=== PATIENT | male | born 1950 | race Caucasian/White ===

== ENCOUNTER → 2017-08-27 13:53 | Outpatient (CLI) | payer MEDICARE, SELFPAY ==
--- NOTE | 2017-08-27 | CA_ITS ---
PROCEDURE: 2-D M-mode and color Doppler study INDICATIONS FOR THE TEST: Chest pain+ COPD+ Heart Murmur Tobacco Smoking+ Palpitations Fatigue+ Syncope Edema+ Hypertension Diabetes Mellitus Rheumatic Fever SOB+PIERCE+Obesity Hyperlipidemia Family History HD+ Additional History cad PATIENT INFORMATION HEIGHT: 69 WEIGHT: 224 GENDER: Male B/P: 137/71 2-D/M-MODE INTERPRETATION: 2-D MEASUREMENTS OBSERVED VALUES IN CMS Right Ventricular Dimension (RVDd) 2.7 Interventricular Septum (Thickness)(IVsd) 1.1 Left Ventricular Internal Dimensions(LVIDd) 4.1 Left Ventricular Posterior Wall (Thickness)(LVPWd) 1.1 Aortic Root 3.1 Aortic Cusp Separation 2.2 Left Atrial Dimensions (LAD) 3.6 2D 1. Left atrium is mildly enlarged, left ventricle is normal size, left ventricle wall thickness is upper limit of the normal, there is preserved left ventricular systolic function, visually estimated ejection fraction 55% with no obvious regional wall motion abnormality, endocardial surfaces are poorly visualized. 2. The right atrium and right ventricle are mildly enlarged with normal contractility. 3. The aortic valve is minimally thickened and fibrosed. 4. The mitral and tricuspid valve leaflets are minimally thickened. 5. The pulmonic valve is poorly visualized. 6. No significant pericardial effusion noted. DOPPLER INTERROGATION: Doppler interrogation of the aortic, mitral and tricuspid presence of mild mitral and tricuspid regurgitation, tricuspid and jet velocity insufficient for calculation of the right ventricular systolic pressure, grade 1 diastolic dysfunction seen without tissue Doppler evidence of raised left atrial pressure. CONCLUSION: 1. Technically difficult study because of the patient's factor and poor acoustic windows 2. Enlarged left atrium, normal left ventricular size, mild concentric left ventricular hypertrophy, visually estimated ejection fraction 55% with no obvious regional wall motion abnormality, grade 1 diastolic dysfunction seen without tissue Doppler evidence of raised left atrial pressure. 3. Mild mitral and tricuspid regurgitation 4. No significant pericardial effusion noted.
== END ==
PROVIDERS: Family Provider Internal Medicine Adolescent Medicine; PCP Emergency Medicine; Visit Provider Internal Medicine
DX: I25.10 Atherosclerotic heart disease of native coronary artery without angina pectoris (principal); R06.00 Dyspnea, unspecified; E78.5 Hyperlipidemia, unspecified; I10 Essential (primary) hypertension; J44.9 Chronic obstructive pulmonary disease, unspecified
CPT/HCPCS: 93306

== ENCOUNTER → 2017-08-28 08:37 | Outpatient (POV) | payer MEDICARE, SELFPAY ==
[2017-08-28 09:35] LABS: Microscopic, Urine URINE MICROSCOPIC (MICROSCOPIC)
[2017-08-28 09:57] LABS: Basophils # 0.1 K/mm3 (0-0.2); Basophils % 0.7 % (0.1-2.0); Eosinophils # 0.3 K/mm3 (0.0-0.4); Eosinophils % 2.7 % (0.1-12.0); Hematocrit 43.4 % (42.0-52.0); Hemoglobin 13.9 g/dL (14.1-18.0); Lymphocytes # 3.5 K/mm3 (0.7-4.5); Lymphocytes % 32.2 K/mm3 (10-50); Mean Corpuscular Hemoglobin 29.1 pg (27.0-31.2); Mean Corpuscular Volume 90.8 fl (80-94); Mean Platelet Volume 7.8 fl (7.4-10.4); Monocytes # 0.8 K/mm3 (0.1-1.0); Monocytes % 7.8 % (1.7-9.3); Neutrophils # 6.1 K/mm3 (1.8-7.8); Neutrophils % 56.6 % (37.0-80.0); Platelet Count 341 K/mm3 (142-424); Red Blood Count 4.78 M/mm3 (4.60-6.20); White Blood Count 10.8 K/mm3 (4.8-10.8)
[2017-08-28 10:10] LABS: Appearance,Urine CLEAR (Clear); Bilirubin,Urine Negative (Negative); Blood, Urine 2+ (Negative); Color,Urine YELLOW (Yellow); Glucose,Urine (UA) Negative (Negative); Ketones,Urine Negative (Negative); Leukocyte Esterase,Urine Negative (Negative); Nitrate,Urine Negative (Negative); Protein,Urine 2+ (Negative); Urobilinogen,Urine 0.2 EU/dl (0.2)
[2017-08-28 10:24] LABS: Bacteria,Urine Trace /lpf; Squamous Epithelial Cell,Urine Occasional #/hpf (0-5)
[2017-08-28 11:15] LABS: Alanine Aminotransferase 19 U/L (12-78); Albumin/Globulin Ratio 0.8 (1.1-1.8); Alkaline Phosphatase 159 U/L (46-116); Anion Gap 11.7 mEq/L (5-15); Aspartate Amino Transferase 18 U/L (15-37); Bilirubin,Total 0.3 mg/dL (0.2-1.0); Blood Urea Nitrogen 17 mg/dL (7-18); Calcium 9.4 mg/dL (8.5-10.1); Carbon Dioxide 29 mmol/L (21.0-32.0); Chloride 105 mmol/L (98-107); Creatinine,Serum 1.76 mg/dL (0.70-1.30); Estimated Glomerular Filt Rate 39 ml/min (>60); GFR (African American) 47 ML/MIN (>60); Glucose 70 mg/dL (74-106); Potassium 4.7 mmoL/L (3.5-5.1); Sodium 141 mmol/L (136-145)
== END ==
PROVIDERS: Family Provider Internal Medicine Adolescent Medicine; PCP Emergency Medicine; Visit Provider Internal Medicine
DX: Z12.2 Encounter for screening for malignant neoplasm of respiratory organs (principal); Z87.891 Personal history of nicotine dependence; N18.4 Chronic kidney disease, stage 4 (severe); R31.29 Other microscopic hematuria
CPT/HCPCS: 36415; 80053; 81001; 85025

== ENCOUNTER → 2017-09-20 08:36 | Outpatient (CLI) | payer MEDICARE, SELFPAY ==
--- NOTE | 2017-09-20 08:40 | CT_ITS ---
CT lung screening EXAM: CT LUNG LOW DOSE WO CONTRAST HISTORY: 67 year old male with 90+ pack year smoking history asymptomatic ITS.REASON: H/O NICOTINE DEPENDENCE ORDERING PHYSICIAN: Ulysses Mcgill MD PATIENT AGE: 67 years COMPARISON: 07/17/2016 TECHNIQUE: The exam was performed on a GE Light Speed [address] scanner using 2.90 mGy CTDI. A low dose helical CT CHEST was performed on a multi-detector scanner. All CT scans at the facility use one or more dose reduction, viz: automated exposure control; ma/kV adjustment per patient size (including targeted exams where dose is matched to indication; i.e. head); or iterative reconstruction technique. The LDCT was performed in a facility that meets the criteria for the screening program. Data regarding this exam was submitted to ACR which is an approved registry. The order for this exam indicates that it came as a result of a lung cancer screening counseling shard decision-making visit that included all the elements required of such a visit including smoking cessation. The radiologist interpreting this exam meets the CMS criteria for the LDCT lung cancer screening program. The exam is reported using the Lung-RADS classification scale and reported to the ACR registry. NOTE: This study was performed for the specific purposes of lung cancer screening and is not an alternative to diagnostic chest CT. RADIATION DOSE: CTDI vol(CT dose Index-volume) = 2.90mG DLP (Dose Length Product) = 110.34 mGcm FINDINGS: There are centrilobular emphysematous changes with hyperinflation. 4 mm noncalcified nodule right upper lobe unchanged. There is mild degree of motion artifact somewhat obscuring fine detail. Stable 4 mm subpleural nodular density right lower lobe laterally. 5 mm subpleural nodule right midlung laterally. Fissural stable. 3 x 1 cm pleural-based plaque-like lesion with some calcification right upper lobe posteriorly unchanged 5 mm subpleural nodular opacity in the lingula area unchanged. No new nodules evident. No central obstructing lesions. Coronary artery calcifications are present. IMPRESSION: 1. Lung RADS Category: 2, benign 2. Other findings: Centrilobular emphysema/COPD. Coronary artery disease RECOMMENDATIONS: 12 month LDCT follow-up
== END ==
PROVIDERS: Family Provider Internal Medicine Adolescent Medicine; PCP Emergency Medicine; Visit Provider Internal Medicine
DX: Z87.891 Personal history of nicotine dependence (principal); Z12.2 Encounter for screening for malignant neoplasm of respiratory organs; J43.9 Emphysema, unspecified; F17.200 Nicotine dependence, unspecified, uncomplicated

== ENCOUNTER → 2017-10-15 14:11 | Outpatient (CLI) | payer MEDICARE, SELFPAY ==
[2017-10-15 00:33] VITALS: BP 130/74; BP 140/90; PULSE 58; PULSE 79; RESP 18; RESP 22; O2SAT 94; O2SAT 95
[2017-10-15 15:40] VITALS: PULSE 58; PULSE 64
== END ==
PROVIDERS: Family Provider Internal Medicine Adolescent Medicine; PCP Emergency Medicine; Visit Provider Internal Medicine
DX: J43.9 Emphysema, unspecified (principal)
CPT/HCPCS: 94060; 94618; 94640; 94727; 94729

== ENCOUNTER → 2017-11-21 14:51 | Outpatient (CLI) | payer MEDICARE, SELFPAY | PROVIDERS: Visit Provider Nurse Practitioner Family | DX: Z79.899 Other long term (current) drug therapy (principal) ==

== ENCOUNTER → 2017-12-10 10:33 | Outpatient (CLI) | payer MEDICARE, SELFPAY ==
--- NOTE | 2017-12-10 10:35 | CA_ITS ---
PROCEDURE: 2-D M-mode and color Doppler study INDICATIONS FOR THE TEST: Chest pain COPD Heart Murmur Tobacco Smoking+ Palpitations Fatigue Syncope Edema Hypertension+Diabetes Mellitus Rheumatic Fever SOB PIERCE Obesity Hyperlipidemia+ Family History HD Additional History cad, ckd PATIENT INFORMATION HEIGHT: 69 WEIGHT:230 GENDER: Male B/P:161/81 2-D/M-MODE INTERPRETATION: 2-D MEASUREMENTS OBSERVED VALUES IN CMS Right Ventricular Dimension (RVDd) 2.6 Interventricular Septum (Thickness)(IVsd) 1.0 Left Ventricular Internal Dimensions(LVIDd) 4.6 Left Ventricular Posterior Wall (Thickness)(LVPWd) 0.9 Aortic Root 3.3 Aortic Cusp Separation 2.0 Left Atrial Dimensions (LAD) 4.1 2D 1. Left atrium is mildly enlarged, left ventricle is normal size, mild concentric left ventricular hypertrophy, visually estimated ejection fraction 55% with no obvious regional wall motion abnormality. 2. The right atrium and right ventricle are normal size and contractility. 3. The aortic valve is minimally thickened and fibrosed. 4. The mitral and tricuspid valve is structurally normal. 5. The pulmonic valve is poorly visualized. 6. No significant pericardial effusion noted. DOPPLER INTERROGATION: Doppler interrogation of the aortic, mitral and tricuspid valvular presence of mild mitral and tricuspid regurgitation, tricuspid regurgitation jet velocity is insufficient for calculation of the right ventricular systolic pressure, grade 1 diastolic dysfunction seen with tissue Doppler evidence of raised left atrial pressure. CONCLUSION: 1. Mildly enlarged left atrium, normal left ventricular size, mild concentric left ventricular hypertrophy, visually estimated ejection fraction 55% with no signal wall motion abnormality, grade 1 diastolic dysfunction seen with tissue Doppler evidence of raised left atrial pressure. 2. Mild mitral and tricuspid regurgitation 3. No significant pericardial effusion noted.
== END ==
PROVIDERS: Family Provider Internal Medicine Adolescent Medicine; PCP Emergency Medicine; Visit Provider Internal Medicine
DX: I25.10 Atherosclerotic heart disease of native coronary artery without angina pectoris (principal)
CPT/HCPCS: 93306

== ENCOUNTER → 2018-02-18 15:15 | Outpatient (CLI) | payer MEDICARE, SELFPAY ==
[2018-02-18 17:55] LABS: Amphetamine/Metha Screen,Urine Negative ng/mL (<1000); Barbiturates Screen,Urine Negative ng/mL (<200); Benzodiazepines Screen,Urine Negative ng/mL (<200); Cannabinoid Screen,Urine Negative ng/mL (<50); Cocaine Screen,Urine Negative ng/mL (<300); Methadone Screen,Urine Negative ng/mL (<300); Opiate Screen,Urine Negative ng/mL (<300); Phencyclidine Screen,Urine Negative ng/mL (<25)
== END ==
PROVIDERS: Visit Provider Nurse Practitioner Family
DX: Z79.899 Other long term (current) drug therapy (principal)
CPT/HCPCS: 80305

== ENCOUNTER → 2018-02-19 11:42 | Outpatient (CLI) | payer MEDICARE, SELFPAY ==
[2018-02-19 15:51] LABS: Anion Gap 10.9 mEq/L (5-15); Blood Urea Nitrogen 18 mg/dL (7-18); Calcium 8.3 mg/dL (8.5-10.1); Carbon Dioxide 32 mmol/L (21.0-32.0); Chloride 102 mmol/L (98-107); Estimated Glomerular Filt Rate 36 ml/min (>60); GFR (African American) 43 ML/MIN (>60); Glucose 90 mg/dL (74-106); Potassium 4.9 mmoL/L (3.5-5.1); Sodium 140 mmol/L (136-145)
== END ==
PROVIDERS: Visit Provider Physician Assistant
DX: E78.2 Mixed hyperlipidemia (principal); F17.200 Nicotine dependence, unspecified, uncomplicated; I10 Essential (primary) hypertension; I25.10 Atherosclerotic heart disease of native coronary artery without angina pectoris; I51.9 Heart disease, unspecified; J45.909 Unspecified asthma, uncomplicated; N18.9 Chronic kidney disease, unspecified; R60.9 Edema, unspecified
CPT/HCPCS: 36415; 80048

== ENCOUNTER → 2018-07-19 10:18 | Outpatient (CLI) | payer MEDICARE, SELFPAY ==
[2018-07-19 12:41] LABS: Anion Gap 14.6 mEq/L (5-15); Blood Urea Nitrogen 35 mg/dL (7-18); Calcium 8.9 mg/dL (8.5-10.1); Carbon Dioxide 26 mmol/L (21.0-32.0); Chloride 101 mmol/L (98-107); Creatinine,Serum 3.24 mg/dL (0.70-1.30); Estimated Glomerular Filt Rate 19 ml/min (>60); GFR (African American) 23 ML/MIN (>60); Glucose 98 mg/dL (74-106); Potassium 5.6 mmoL/L (3.5-5.1); Sodium 136 mmol/L (136-145)
== END ==
PROVIDERS: Internal Medicine Cardiovascular Disease; Visit Provider Internal Medicine
DX: F17.200 Nicotine dependence, unspecified, uncomplicated; G62.9 Polyneuropathy, unspecified; I25.10 Atherosclerotic heart disease of native coronary artery without angina pectoris; J45.909 Unspecified asthma, uncomplicated; N18.9 Chronic kidney disease, unspecified; I11.9 Hypertensive heart disease without heart failure; E78.2 Mixed hyperlipidemia
CPT/HCPCS: 36415; 80048

== ENCOUNTER → 2018-10-14 11:34 | Outpatient (CLI) | payer MEDICARE, SELFPAY ==
[2018-10-14 12:31] LABS: Blood Urea Nitrogen 32 mg/dL (7-18); Calcium 8.6 mg/dL (8.5-10.1); Carbon Dioxide 32 mmol/L (21.0-32.0); Chloride 102 mmol/L (98-107); Creatinine,Serum 2.99 mg/dL (0.70-1.30); Estimated Glomerular Filt Rate 21 ml/min (>60); GFR (African American) 25 ML/MIN (>60); Glucose 78 mg/dL (74-106); Sodium 140 mmol/L (136-145)
== END ==
PROVIDERS: Visit Provider Nurse Practitioner Family
DX: R06.00 Dyspnea, unspecified (principal); E78.2 Mixed hyperlipidemia; F17.200 Nicotine dependence, unspecified, uncomplicated; I25.10 Atherosclerotic heart disease of native coronary artery without angina pectoris; N18.9 Chronic kidney disease, unspecified; R60.9 Edema, unspecified
CPT/HCPCS: 36415; 80048; 83880

== ENCOUNTER → 2018-10-16 15:20 | Outpatient (CLI) | payer MEDICARE, SELFPAY ==
--- NOTE | 2018-10-16 15:21 | CA_ITS ---
PROCEDURE: 2-D M-mode and color Doppler study INDICATIONS FOR THE TEST: Chest pain COPDX Heart Murmur Tobacco SmokingX Palpitations Fatigue Syncope EdemaX HypertensionXDiabetes Mellitus Rheumatic Fever SOBXDOE Obesity HyperlipidemiaX Family History HD Additional History TDS PATIENT INFORMATION HEIGHT:69 WEIGHT:256 GENDER: Male B/P:154/75 2-D/M-MODE INTERPRETATION: 2-D MEASUREMENTS OBSERVED VALUES IN CMS Right Ventricular Dimension (RVDd) 3.5 Interventricular Septum (Thickness)(IVsd) 1.0 Left Ventricular Internal Dimensions(LVIDd) 5.7 Left Ventricular Posterior Wall (Thickness)(LVPWd) 1.2 Aortic Root 3.7 Aortic Cusp Separation 1.8 Left Atrial Dimensions (LAD) 3.8 2D 1. Left atrium is mildly enlarged, left ventricle is normal size, mild concentric left ventricular hypertrophy, visually estimated ejection fraction 55% with no regional wall motion abnormality. 2. The right atrium and right ventricle are mildly enlarged with normal contractility. 3. The aortic valve is minimally thickened and fibrosed. 4. The mitral and tricuspid valvular grossly normal. 5. The pulmonic valve is poorly visualized. 6. No significant pericardial effusion noted. DOPPLER INTERROGATION: Doppler interrogation of the aortic, mitral and tricuspid valvular presence of mild mitral and tricuspid regurgitation, tricuspid regurgitation jet velocity is inadequate for calculation of the right ventricular systolic pressure, grade 1 diastolic dysfunction seen without tissue Doppler evidence of raised left atrial pressure, inferior vena cava is not well visualized. CONCLUSION: 1. Biatrial enlargement, normal left ventricular size, mild concentric left ventricular hypertrophy, visually estimated ejection fraction 55% with no regional wall motion abnormality, grade 1 diastolic dysfunction seen without tissue Doppler evidence of raised left atrial pressure. 2. Mildly enlarged right ventricle with normal contractility. 3. Mild mitral and tricuspid regurgitation 4. No significant pericardial effusion noted.
== END ==
PROVIDERS: PCP Emergency Medicine; Visit Provider Nurse Practitioner Family
DX: I51.89 Other ill-defined heart diseases (principal); R06.00 Dyspnea, unspecified; R06.01 Orthopnea; R60.0 Localized edema
CPT/HCPCS: 93306

== ENCOUNTER → 2018-10-30 12:07 | Outpatient (CLI) | payer MEDICARE, SELFPAY ==
[2018-10-30 13:27] LABS: Anion Gap 9.8 mEq/L (5-15); Blood Urea Nitrogen 23 mg/dL (7-18); Calcium 8.9 mg/dL (8.5-10.1); Carbon Dioxide 32 mmol/L (21.0-32.0); Chloride 103 mmol/L (98-107); Creatinine,Serum 2.49 mg/dL (0.70-1.30); Estimated Glomerular Filt Rate 26 ml/min (>60); GFR (African American) 31 ML/MIN (>60); Glucose 78 mg/dL (74-106); Potassium 4.8 mmoL/L (3.5-5.1); Sodium 140 mmol/L (136-145)
== END ==
PROVIDERS: Visit Provider Urology
DX: E78.5 Hyperlipidemia, unspecified (principal); F17.200 Nicotine dependence, unspecified, uncomplicated; I25.10 Atherosclerotic heart disease of native coronary artery without angina pectoris; I50.9 Heart failure, unspecified; J44.9 Chronic obstructive pulmonary disease, unspecified; N18.9 Chronic kidney disease, unspecified; R06.00 Dyspnea, unspecified; R60.9 Edema, unspecified; I12.9 Hypertensive chronic kidney disease with stage 1 through stage 4 chronic kidney disease, or unspecified chronic kidney disease
CPT/HCPCS: 36415; 80048

== ENCOUNTER 2018-11-27 14:50 | Inpatient (IN) ==
[2018-11-27 15:16] LABS: Basophils % 0.4 % (0.1-2.0); Eosinophils # 0.3 K/mm3 (0.0-0.4); Eosinophils % 3.5 % (0.1-12.0); Hematocrit 39.8 % (42.0-52.0); Hemoglobin 12.2 g/dL (14.1-18.0); Lymphocytes # 2.6 K/mm3 (0.7-4.5); Lymphocytes % 26.2 % (10-50); Mean Corpuscular HGB Conc 30.8 g/dL (31.8-35.4); Mean Corpuscular Volume 88.5 fl (80-94); Mean Platelet Volume 7.7 fl (7.4-10.4); Monocytes # 0.7 K/mm3 (0.1-1.0); Monocytes % 6.6 % (1.7-9.3); Neutrophils # 6.3 K/mm3 (1.8-7.8); Neutrophils % 63.3 % (37.0-80.0); Platelet Count 316 K/mm3 (142-424); Red Blood Count 4.49 M/mm3 (4.60-6.20); Red Cell Distribution Width 15.9 % (11.5-17.5); White Blood Count 9.9 K/mm3 (4.8-10.8)
[2018-11-27 15:31] LABS: Anion Gap 9.3 mEq/L (5-15); Blood Urea Nitrogen 22 mg/dL (7-18); Calcium 8.5 mg/dL (8.5-10.1); Carbon Dioxide 34 mmol/L (21.0-32.0); Chloride 104 mmol/L (98-107); Glucose 86 mg/dL (74-106); Sodium 143 mmol/L (136-145)
--- NOTE | 2018-11-27 15:58 | Emergency Department Note ---
ED Disposition Clinical Impression: CHF (congestive heart failure), CKD (chronic kidney disease) Disposition: Admitted as Observation Condition on Discharge: Fair Referrals: Cash Olvera MD [Primary Care Provider] - Time of Disposition: 16:57 - Critical Care Critical Care Time: No Attestation: On 11/27/18, the high probability of a clinically significant, sudden or life threatening deterioration of the following system(s) required my full and direct attention, intervention and personal management. The time I documented below is in addition to time spent performing reported procedures but includes the following listed in this critical care notation. Medical Decision Making - Medical Records Medical records reviewed: Yes: I reviewed the patient's medical records. - Hugo Inquiry Pt receiving controlled substance: No Hugo was queried for this patient: No Vital Signs: 11/27/18 14:51 11/27/18 15:21 11/27/18 15:30 Temperature 98 F Temperature Source Oral Pulse Rate Pulse Rate [Left Radial] 63 59 L 58 L Respiratory Rate 24 Blood Pressure [Right Arm] 157/91 H 177/87 H 177/87 H Blood Pressure Mean [Right Arm] 113 117 117 Blood Pressure Source [Right Arm] Automatic Cuff Automatic Cuff Blood Pressure Position [Right Arm] Sitting Sitting 02 Sat by Pulse Oximetry 91 L 96 96 Oxygen Delivery Method Room Air Nasal Cannula 11/27/18 15:50 Temperature Temperature Source Pulse Rate 57 L Pulse Rate [Left Radial] Respiratory Rate Blood Pressure [Right Arm] Blood Pressure Mean [Right Arm] Blood Pressure Source [Right Arm] Blood Pressure Position [Right Arm] 02 Sat by Pulse Oximetry Oxygen Delivery Method - Lab Data Lab results reviewed: Yes: I reviewed the patient's lab results. Lab Results 11/27/18 15:05: WBC 9.9, RBC 4.49 L, Hgb 12.2 L, Hct 39.8 L, MCV 88.5, MCH 27.2, MCHC 30.8 L, RDW 15.9, Plt Count 316, MPV 7.7, Neut % (Auto) 63.3, Lymph % (Auto) 26.2, [place] % (Auto) 6.6, Eos % (Auto) 3.5, Baso % (Auto) 0.4, Neut # (Auto) 6.3, Lymph # (Auto) 2.6, [place] # (Auto) 0.7, Eos # (Auto) 0.3, Baso # (Auto) 0.0 11/27/18 15:05: Sodium 143, Potassium 4.3, Chloride 104, Carbon Dioxide 34 H, Anion Gap 9.3, BUN 22 H, Creatinine 3.41 H, Estimated Creat Clear 35, Estimated GFR 18 L*, Est GFR ( Amer) 22 L, Glucose 86, Calcium 8.5, Troponin I < 0.02 11/27/18 15:05: B-Natriuretic Peptide 1110 H Result diagrams: 11/27/18 15:05 11/27/18 15:05 Orders (Tests/Meds): ED MEDICATIONS Discontinued Medications Generic Name Dose Route Start Last Admin Trade Name Freq PRN Reason Stop Dose Admin Albuterol/Ipratropium 3 ml 11/27/18 15:49 11/27/18 15:50 Duoneb 3ml Neb IH 11/27/18 15:50 3 ml ONCE ONE Administration ORDERS Category Date Time Status US abdomen complete Stat Ultrasound 11/27/18 15:47 Ordered - Physician Consults Physician Consulted: bam Reason -: Admission General Adult HPI - General Chief complaint: Shortness of Breath/Dyspnea Stated complaint: sob Time Seen by Provider: 11/27/18 15:15 Mode of Arrival: Wheelchair Source of Information: Patient Limitations: No Limitations Description of Symptoms (Recalled from ER Triage Doc. by RN): pt sent from dr medrano for eval due to sob, swelling feet ankles and abd. generalized weakness, and fatique. pt states has been getting worse over the last 3 days. pt denies any chest pain, cough, fever. - History of Present Illness HPI narrative: some increasing weight, girth, leg edema. on lasix 40 mg bid. Spoke with Dr. Medrano, rec admission for diuresis and follow kidney function - Related Data Home Medications Medication Instructions Recorded Confirmed aspirin 81 mg tablet,delayed 81 mg PO DAILY 07/19/18 11/27/18 release furosemide 40 mg tablet 40 mg PO BID tab 10/30/18 11/27/18 Albuterol Sulfate [Albuterol HFA 2 puff INHALATION Q6H 11/27/18 11/27/18 Inhaler] Atorvastatin Calcium [Lipitor 20mg 20 mg PO QDAY 11/27/18 11/27/18 Tablet] Diclofenac Sodium [Voltaren 100gm 2 g TOPICAL QID 11/27/18 11/27/18 Topical Gel] Fluticasone Propionate [Flovent 2 inh INHALATION BID 11/27/18 11/27/18 Diskus] Gabapentin 800 mg PO QID 11/27/18 11/27/18 Hydralazine HCl [Hydralazine HCl 25 mg PO TID 11/27/18 11/27/18 25mg Tablet] Isosorbide Mononitrate [Imdur 30mg 30 mg PO DAILY 11/27/18 11/27/18 ER tablet] Losartan Potassium 100 mg PO DAILY 11/27/18 11/27/18 Prasugrel HCl [Prasugrel 10mg 10 mg PO QDAY 11/27/18 11/27/18 Tab] Triamcinolone Acetonide 1 applic TOPICAL BID 11/27/18 11/27/18 Umeclidinium Brm/Vilanterol Tr 1 inh INHALATION Q24H 11/27/18 11/27/18 [Anoro Ellipta] carvedilol 12.5 mg tablet 25 mg PO BID tab 11/27/18 11/27/18 Previous Rx's Medication Instructions Recorded polyethylene glycol 3350 17 17 g PO QDAY PRN #30 each 11/21/17 gram/dose oral powder Allergies Allergy/AdvReac Type Severity Reaction Status Date / Time lisinopril Allergy Severe Swelling Verified 11/27/18 13:38 of Lip/Tongue/Throat [facility] History - Hepatitis A Screen Drug use history?: No High risk sexual behaviors?: No History of sexually transmitted infection?: No Currently employed?: No Childcare worker?: No Do you have indoor plumbing?: Yes Do you have electricity?: Yes Attestation statement:: This patient has been screened for Hepatitis A risk factors. I have reviewed the patient's past medical history: Yes Medical History: Reports:: Asthma, Coronary Artery Disease, Gall Bladder Disease, Hyperlipidemia, Hypertension Comment: DEAF, HEART PROBLEMS,RA Laterality Cases: Right: Arthroscopy Shoulder Other Surgeries: Yes: Cardiac Catheterization, Cholecystectomy, Colonoscopy, Coronary Stent, Other Amputation: No Fractures: No Comment: GALLBLADDER REMOVED, HEART STENTS, RIGHT ROTATOR CUFF - Social History Smoking Status: Current every day smoker Tobacco Type: cigarettes # Packs/Day (cigarettes): 1 Alcohol Intake: never Alcohol Intake Frequency:: other Substance Use Type: denies use Occupational Status: disabled Housing: house Household Members: none Family Hx:: Coronary Artery Disease, Heart Attack ROS Obtained: Yes All systems reviewed & no additional complaints - Constitutional Constitutional: Denies fever(s) - Cardiovascular Cardiovascular: Denies chest pain, Reports dyspnea, Reports dyspnea on exertion - Respiratory Respiratory: Yes dyspnea on exertion - Gastrointestinal Gastrointestingal: Reports: bloating. Denies: abdominal pain - Musculoskeletal Musculoskeletal: Denies joint stiffness, Denies joint swelling, Denies muscle cr amps - Integumentary/Breasts Skin/Breast: Reports skin swelling - Neurologic Neurologic: Denies syncope - Hematologic/Lymphatic Henatologic/Lymphatic: Denies easy bleeding, Denies easy bruising Physical Exam - General General appearance: alert, in no apparent distress - Head Head exam: atraumatic, normocephalic, normal inspection - Eye Eye exam: Present: normal appearance, PERRL, EOMI - ENT ENT exam: Present: normal exam, normal oropharynx, mucous membranes moist, TM's normal bilaterally, normal external ear exam - Respiratory Respiratory exam: Present: other (scattered rales). Absent: respiratory distress - Cardiovascular Cardiovascular exam: Present: regular rate, normal rhythm - Abdominal Exam Abdominal exam: Present: distention. Absent: tenderness Comment: belly is taut, uclear if all ascites related. - Extremities Exam Extremities exam: Present: pedal edema - Neurological Exam Neurological exam: Present: alert, oriented X3 - Psychiatric Psychiatric exam: Present: normal affect, normal mood - Skin Skin exam: Present: warm, dry, other (edema to lower legs)
--- NOTE | 2018-11-28 07:41 | Pharmacy Consult Notes ---
[facility] Pharmacy VTE Monitoring - Patient Demographics Admission date: 11/27/18 Report Date: 11/28/18 Time: 07:41 Allergies/Adverse Reactions: Patient Allergies lisinopril Allergy (Severe, Verified 11/27/18 13:38) Swelling of Lip/Tongue/Throat Height: 1.75 m Weight: 117.084 kg Patient Problems: Current Active Problems CHF (congestive heart failure) (Acute) CKD (chronic kidney disease) (Chronic) - VTE Risk Labs: VTE Related Lab Results Hgb 12.2 g/dL (14.1-18.0) L 11/27/18 15:05 Hct 39.8 % (42.0-52.0) L 11/27/18 15:05 Plt Count 316 K/mm3 (142-424) 11/27/18 15:05 BUN 22 mg/dL (7-18) H 11/27/18 15:05 Creatinine 3.41 mg/dL (0.70-1.30) H 11/27/18 15:05 Estimated Creat Clear 35 mL/min (50-200) 11/27/18 15:05 Was VTE Risk Assessment Performed: Yes VTE Score: 3 VTE Risk Level: Low Risk - Prophylaxis VTE Prophylaxis Ordered?: Yes Types of VTE Prophylaxis: TEDS Knee High Location of Applied Device: Bilateral Lower Extremeties - VTE Diagnosis Confirmed Treatment or plan recommended: Continue Current Treatment
[2018-11-28 08:00] LABS: Basophils # 0.1 K/mm3 (0-0.2); Basophils % 0.5 % (0.1-2.0); Eosinophils # 0.3 K/mm3 (0.0-0.4); Hematocrit 39.7 % (42.0-52.0); Lymphocytes # 2.2 K/mm3 (0.7-4.5); Lymphocytes % 21.4 % (10-50); Mean Corpuscular HGB Conc 30.3 g/dL (31.8-35.4); Mean Corpuscular Volume 89.7 fl (80-94); Mean Platelet Volume 7.4 fl (7.4-10.4); Monocytes # 0.8 K/mm3 (0.1-1.0); Monocytes % 7.9 % (1.7-9.3); Neutrophils % 67.2 % (37.0-80.0); Platelet Count 346 K/mm3 (142-424); Red Blood Count 4.43 M/mm3 (4.60-6.20); Red Cell Distribution Width 15.9 % (11.5-17.5); White Blood Count 10.4 K/mm3 (4.8-10.8)
[2018-11-28 08:09] LABS: Anion Gap 8.7 mEq/L (5-15); Calcium 8.5 mg/dL (8.5-10.1)
--- NOTE | 2018-11-28 08:40 | Progress Note ---
Subjective Date: 11/28/18 Time: 08:37 Principal diagnosis: CHF, CKD Interval history: 68-year-old white male was seen in the office yesterday and subsequently admitted through the ER for acute on chronic congestive heart failure. Patient did receive IV Lasix with less than a liter of output overnight. Breathing is minimally improved. Patient denies any recent increase in salt intake or missing medications. Recent echocardiogram last month shows: 2D 1. Left atrium is mildly enlarged, left ventricle is normal size, mild concentric left ventricular hypertrophy, visually estimated ejection fraction 55% with no regional wall motion abnormality. 2. The right atrium and right ventricle are mildly enlarged with normal contractility. 3. The aortic valve is minimally thickened and fibrosed. 4. The mitral and tricuspid valvular grossly normal. 5. The pulmonic valve is poorly visualized. 6. No significant pericardial effusion noted. DOPPLER INTERROGATION: Doppler interrogation of the aortic, mitral and tricuspid valvular presence of mild mitral and tricuspid regurgitation, tricuspid regurgitation jet velocity is inadequate for calculation of the right ventricular systolic pressure, grade 1 diastolic dysfunction seen without tissue Doppler evidence of raised left atrial pressure, inferior vena cava is not well visualized. CONCLUSION: 1. Biatrial enlargement, normal left ventricular size, mild concentric left ventricular hypertrophy, visually estimated ejection fraction 55% with no regional wall motion abnormality, grade 1 diastolic dysfunction seen without tissue Doppler evidence of raised left atrial pressure. 2. Mildly enlarged right ventricle with normal contractility. 3. Mild mitral and tricuspid regurgitation 4. No significant pericardial effusion noted. Exam Vital signs and Labs for Last 24 Hours: Temp Pulse Resp BP Pulse Ox 97.7 F 59 L 24 152/76 H 93 L 11/28/18 07:55 11/28/18 07:55 11/28/18 07:55 11/28/18 07:55 11/28/18 07:55 Laboratory Results - last 24 hr 11/27/18 15:05: WBC 9.9, RBC 4.49 L, Hgb 12.2 L, Hct 39.8 L, MCV 88.5, MCH 27.2, MCHC 30.8 L, RDW 15.9, Plt Count 316, MPV 7.7, Neut % (Auto) 63.3, Lymph % (Auto) 26.2, Bond % (Auto) 6.6, Eos % (Auto) 3.5, Baso % (Auto) 0.4, Neut # (Auto) 6.3, Lymph # (Auto) 2.6, Bond # (Auto) 0.7, Eos # (Auto) 0.3, Baso # (Auto) 0.0 11/27/18 15:05: Sodium 143, Potassium 4.3, Chloride 104, Carbon Dioxide 34 H, Anion Gap 9.3, BUN 22 H, Creatinine 3.41 H, Estimated Creat Clear 35, Estimated GFR 18 L*, Est GFR ( Amer) 22 L, Glucose 86, Calcium 8.5, Troponin I < 0.02 11/27/18 15:05: B-Natriuretic Peptide 1110 H 11/28/18 07:29: WBC 10.4, RBC 4.43 L, Hgb 12.0 L, Hct 39.7 L, MCV 89.7, MCH 27.2, MCHC 30.3 L, RDW 15.9, Plt Count 346, MPV 7.4, Neut % (Auto) 67.2, Lymph % (Auto) 21.4, Bond % (Auto) 7.9, Eos % (Auto) 3.0, Baso % (Auto) 0.5, Neut # (Auto) 7.0, Lymph # (Auto) 2.2, Bond # (Auto) 0.8, Eos # (Auto) 0.3, Baso # (Auto) 0.1 11/28/18 07:29: Sodium 142, Potassium 4.7, Chloride 105, Carbon Dioxide 33 H, Anion Gap 8.7, BUN 27 H, Creatinine 3.74 H, Estimated Creat Clear 32, Estimated GFR 16 L*, Est GFR ( Amer) 20 L, Glucose 95, Calcium 8.5 I & O for Last 24 hours: Intake & Output 11/25/18 11/26/18 11/27/18 11/28/18 11:59 11:59 11:59 11:59 Intake Total 537 / 537 Output Total 900 / 900 Balance -363 / -363 Weight 258 lb 2 oz - *Routine HEENT Exam Head: Present: normocephalic Eye: Present: EOMI, PERRL ENT: Present: mucous membranes moist - *Routine Respiratory Exam Present: rhonchi, wheezes. Absent: accessory muscle use, rales - *Routine Cardiovascular Exam Present: RRR. Absent: murmur, gallop, rubs - *Routine Extremities Exam Present: edema. Absent: calf tenderness - *Routine Neurological Exam Present: alert, oriented X3, moving all extremities Very hard of hearing Progress Note: A&P (1) CHF (congestive heart failure) Status: Acute Current Visit: Yes (2) Abdominal distention Status: Acute Current Visit: No (3) COPD (chronic obstructive pulmonary disease) Status: Acute Current Visit: No (4) Edema of both lower extremities Status: Acute Current Visit: No (5) Obesity (BMI 30-39.9) Status: Acute Current Visit: No (6) Diastolic dysfunction Status: Chronic Current Visit: No (7) Tobacco dependence syndrome Status: Chronic Current Visit: No Assessment and Plan for All Diagnoses:: 1. We will obtain a limited echo today to assess for etiology of his congestive heart failure, which is likely due to acute on chronic diastolic dysfunction related to hypertensive heart disease. 2. Continue Isosorbide and hydralazine along with IV Lasix. 3. Lung nodule noted on chest x-ray reportedly different than nodule seen on CXR and CT of chest last year, defer to Dr. Olvera for further evaluation.
--- NOTE | 2018-11-28 11:51 | History & Physical Report ---
*Admission Date: 11/27/18 *Chief complaint: SOA, Wt Gain *History of present illness: Patient sitting up in bed this morning respirations are easy, even. He denies any chest pain. He is currently on 2 L of oxygen per nasal cannula. Patient is extremely hard of hearing. 68-year-old male patient sent from Dr. Weller's office during examination for shortness of breath, bilateral ankle, feet, and abdominal edema, generalized weakness, and fatigue. Patient stated he was getting worse over the last 3 days and denied any chest pain, cough, or fever. He also stated increasing weight, girth, bilateral leg edema, and currently taking Lasix [address] Weller requested admission for diuresis and to follow kidney function. Chest x-ray revealed congestive heart failure and suspicious 3 cm right upper lobe nodule. Abdominal CT was negative for ascites (both per Dr. Adam). [facility] History Medical History: Reports:: Asthma, Congestive Heart Failure, Coronary Artery Disease, Gall Bladder Disease, Hyperlipidemia, Hypertension Denies:: Cancer, Diabetes Mellitus Type 1, Diabetes Mellitus Type 2, MRSA *Have you ever received a pneumonia vaccine?: No *Have you received a flu vaccine this season?: No Laterality Cases: Right: Arthroscopy Shoulder Other Surgeries: Yes: Cardiac Catheterization, Cholecystectomy, Colonoscopy, Coronary Stent, Other Amputation: No Fractures: No - *Social History Smoking Status: Current every day smoker Tobacco Type: cigarettes # Packs/Day (cigarettes): 1 Alcohol Intake: never Alcohol Intake Frequency:: other Substance Use Type: denies use *Occupational Status:: disabled Housing: house Household Members: none *Travel in the last 8 weeks: None Family Hx:: Coronary Artery Disease, Heart Attack Review of Systems - Constitutional Reports fatigue, Reports weakness, Reports weight gain - Eyes Denies blurry vision, Denies change in vision - ENT Reports abnormal hearing, Reports hearing loss, Denies lip swelling, Denies mouth pain, Denies neck pain - *Cardiovascular Reports shortness of breath with activity, Reports generalized swelling, Denies chest pain - *Respiratory Reports shortness of breath with activity - *Gastrointestinal Denies abdominal pain, Denies excessive passing of gas, Denies black, tarry stools - *Genitourinary Denies difficulty urinating, Denies genital pain - *Musculoskeletal Denies joint pain, Denies neck pain - Integumentary/Breasts Denies hair loss, Denies bleeding lesions, Denies change in skin color - *Neurologic Reports abnormal hearing, Denies confusion, Denies headache(s), Denies numbness, Denies fainting - Psychiatric Denies confusion, Denies thoughts of hurting/killing yourself - Endocrine Denies cold intolerance, Denies rapid, pounding, or irregular heartbeat - Hematologic/Lymphatic Denies easy bleeding, Denies easy bruising - Allergic/Immunologic Denies GI upset with certain foods Meds Home Medications Medication Instructions Recorded Confirmed Type aspirin 81 mg tablet,delayed 81 mg PO DAILY 07/19/18 11/27/18 History release furosemide 40 mg tablet 40 mg PO BID tab 10/30/18 11/27/18 History Albuterol Sulfate [Albuterol HFA 2 puff INHALATION Q6H PRN 11/27/18 11/28/18 History Inhaler] Atorvastatin Calcium [Lipitor 20mg 20 mg PO DAILY 11/27/18 11/28/18 History Tablet] Fluticasone Propionate [Flovent 2 puffs INHALATION BID 11/27/18 11/28/18 History Diskus] Gabapentin 800 mg PO QID 11/27/18 11/27/18 History Hydralazine HCl [Hydralazine HCl 25 mg PO TID 11/27/18 11/27/18 History 25mg Tablet] Isosorbide Mononitrate [Imdur 30mg 30 mg PO DAILY 11/27/18 11/27/18 History ER tablet] Losartan Potassium 100 mg PO DAILY 11/27/18 11/27/18 History Prasugrel HCl [Prasugrel 10mg 10 mg PO DAILY 11/27/18 11/28/18 History Tab] Umeclidinium Brm/Vilanterol Tr 1 puff INHALATION Q24H 11/27/18 11/28/18 History [Anoro Ellipta] carvedilol 12.5 mg tablet 12.5 mg PO BID tab 11/27/18 11/28/18 History Allergies Allergy/AdvReac Type Severity Reaction Status Date / Time lisinopril Allergy Severe Swelling Verified 11/27/18 13:38 of Lip/Tongue/Throat Exam Vital signs and Labs for Last 24 Hours: Temp Pulse Resp BP Pulse Ox 97.7 F 64 24 152/76 H 93 L 11/28/18 07:55 11/28/18 10:56 11/28/18 07:55 11/28/18 07:55 11/28/18 08:00 Laboratory Results - last 24 hr 11/27/18 15:05: WBC 9.9, RBC 4.49 L, Hgb 12.2 L, Hct 39.8 L, MCV 88.5, MCH 27.2, MCHC 30.8 L, RDW 15.9, Plt Count 316, MPV 7.7, Neut % (Auto) 63.3, Lymph % (Auto) 26.2, Grundy % (Auto) 6.6, Eos % (Auto) 3.5, Baso % (Auto) 0.4, Neut # (Auto) 6.3, Lymph # (Auto) 2.6, Grundy # (Auto) 0.7, Eos # (Auto) 0.3, Baso # (Auto) 0.0 11/27/18 15:05: Sodium 143, Potassium 4.3, Chloride 104, Carbon Dioxide 34 H, Anion Gap 9.3, BUN 22 H, Creatinine 3.41 H, Estimated Creat Clear 35, Estimated GFR 18 L*, Est GFR ( Amer) 22 L, Glucose 86, Calcium 8.5, Troponin I < 0.02 11/27/18 15:05: B-Natriuretic Peptide 1110 H 11/28/18 07:29: WBC 10.4, RBC 4.43 L, Hgb 12.0 L, Hct 39.7 L, MCV 89.7, MCH 27.2, MCHC 30.3 L, RDW 15.9, Plt Count 346, MPV 7.4, Neut % (Auto) 67.2, Lymph % (Auto) 21.4, Grundy % (Auto) 7.9, Eos % (Auto) 3.0, Baso % (Auto) 0.5, Neut # (Auto) 7.0, Lymph # (Auto) 2.2, Grundy # (Auto) 0.8, Eos # (Auto) 0.3, Baso # (Auto) 0.1 11/28/18 07:29: Sodium 142, Potassium 4.7, Chloride 105, Carbon Dioxide 33 H, Anion Gap 8.7, BUN 27 H, Creatinine 3.74 H, Estimated Creat Clear 32, Estimated GFR 16 L*, Est GFR ( Amer) 20 L, Glucose 95, Calcium 8.5 I & O for Last 24 hours: Intake & Output 11/25/18 11/26/18 11/27/18 11/28/18 23:59 23:59 23:59 23:59 Intake Total 537 / 537 Output Total 350 / 350 1050 / 1050 Balance -350 / -350 -513 / -513 Weight 253 lb 9 oz 258 lb 2 oz - Constitutional no acute distress, obese - *Routine HEENT Exam Head: Present: normocephalic, atraumatic Eye: Present: EOMI, PERRL ENT: Present: mucous membranes dry - *Routine Neck Exam Present: supple, full ROM. Absent: JVD - *Routine Respiratory Exam Present: rhonchi, wheezes. Absent: accessory muscle use, rales - *Routine Cardiovascular Exam Present: RRR - *Routine Abdominal Exam Present: normoactive bowel sounds, distended, firm. Absent: tenderness - *Routine Extremities Exam Present: pulses intact. Absent: cyanosis, extremity cold to touch - Routine Back/Spine/Pelvis Exam Back/Spine: Present: full ROM. Absent: CVA tenderness, pain with flexion, pain with rotation - *Routine Skin Exam Present: intact, warm. Absent: cyanosis, jaundice - *Routine Neurological Exam Present: alert, oriented X3, CN II-XII intact. Absent: altered mental status - Routine Psychiatric Exam Present: normal affect, normal thought process. Absent: auditory hallucinations, visual hallucinations Assessment and Plan (1) CHF (congestive heart failure) Current visit: Yes Status: Acute Qualifiers: Category: Medical Code(s): I50.9 - Heart failure, unspecified (2) Abdominal distention Current visit: No Status: Acute Category: Medical Code(s): R14.0 - Abdominal distension (gaseous) (3) COPD (chronic obstructive pulmonary disease) Current visit: No Status: Acute Qualifiers: COPD type: emphysema Emphysema type: unspecified Qualified Code(s): J43.9 - Emphysema, unspecified Category: Medical Code(s): J44.9 - Chronic obstructive pulmonary disease, unspecified (4) Edema of both lower extremities Current visit: No Status: Acute Category: Medical Code(s): R60.0 - Localized edema (5) Obesity (BMI 30-39.9) Current visit: No Status: Acute Category: Medical Code(s): E66.9 - Obesity, unspecified (6) Diastolic dysfunction Current visit: No Status: Chronic Category: Medical Code(s): I51.9 - Heart disease, unspecified (7) Tobacco dependence syndrome Current visit: No Status: Chronic Category: Medical Code(s): F17.200 - Nicotine dependence, unspecified, uncomplicated (8) CKD (chronic kidney disease) Current visit: Yes Status: Chronic Qualifiers: Category: Medical Code(s): N18.9 - Chronic kidney disease, unspecified - Assessment and plan all Dx Assessment and Plan for all problems:: Rounds w/ Dr. Olvera, all orders per Dr. Olvera Cards Rec: 1. We will obtain a limited echo today to assess for etiology of his congestive heart failure, which is likely due to acute on chronic diastolic dysfunction related to hypertensive heart disease. 2. Continue Isosorbide and hydralazine along with IV Lasix. 3. Lung nodule noted on chest x-ray reportedly different than nodule seen on CXR and CT of chest last year, defer to Dr. Olvera for further evaluation. 1. Strict I/O's 2. Will Chest CT as outpatient unless needs arise
[2018-11-28 13:36] LABS: Anion Gap 9.5 mEq/L (5-15); Calcium 8.4 mg/dL (8.5-10.1)
[2018-11-28 13:50] LABS: Basophils % 0.4 % (0.1-2.0); Eosinophils # 0.3 K/mm3 (0.0-0.4); Eosinophils % 2.9 % (0.1-12.0); Hematocrit 39.3 % (42.0-52.0); Lymphocytes # 2.2 K/mm3 (0.7-4.5); Lymphocytes % 23.9 % (10-50); Mean Corpuscular HGB Conc 30.5 g/dL (31.8-35.4); Mean Corpuscular Volume 89.7 fl (80-94); Mean Platelet Volume 7.4 fl (7.4-10.4); Monocytes # 0.6 K/mm3 (0.1-1.0); Monocytes % 6.1 % (1.7-9.3); Neutrophils # 6.2 K/mm3 (1.8-7.8); Neutrophils % 66.7 % (37.0-80.0); Platelet Count 292 K/mm3 (142-424); Red Blood Count 4.38 M/mm3 (4.60-6.20); Red Cell Distribution Width 15.9 % (11.5-17.5); White Blood Count 9.3 K/mm3 (4.8-10.8)
--- NOTE | 2018-11-29 07:40 | Progress Note ---
Subjective Date: 11/29/18 Time: 07:37 Principal diagnosis: CHF, CKD Interval history: 68 yo WM sitting up at bedside eating breakfast in NAD. Still with complaint of SOA. Mainly concerned about no BM in 3 days. Limited echo yesterday shows no change compared to echo 09/2018 with normal LVEF and no pericardial effusion. Exam Vital signs and Labs for Last 24 Hours: Temp Pulse Resp BP Pulse Ox 98.2 F 71 20 142/58 H 86 L 11/29/18 03:43 11/29/18 06:24 11/29/18 03:43 11/29/18 03:43 11/29/18 06:24 Laboratory Results - last 24 hr 11/28/18 07:29: WBC 10.4, RBC 4.43 L, Hgb 12.0 L, Hct 39.7 L, MCV 89.7, MCH 27.2, MCHC 30.3 L, RDW 15.9, Plt Count 346, MPV 7.4, Neut % (Auto) 67.2, Lymph % (Auto) 21.4, Fountain % (Auto) 7.9, Eos % (Auto) 3.0, Baso % (Auto) 0.5, Neut # (Auto) 7.0, Lymph # (Auto) 2.2, Fountain # (Auto) 0.8, Eos # (Auto) 0.3, Baso # (Auto) 0.1 11/28/18 07:29: Sodium 142, Potassium 4.7, Chloride 105, Carbon Dioxide 33 H, Anion Gap 8.7, BUN 27 H, Creatinine 3.74 H, Estimated Creat Clear 32, Estimated GFR 16 L*, Est GFR ( Amer) 20 L, Glucose 95, Calcium 8.5 11/28/18 13:12: WBC 9.3, RBC 4.38 L, Hgb 12.0 L, Hct 39.3 L, MCV 89.7, MCH 27.4, MCHC 30.5 L, RDW 15.9, Plt Count 292, MPV 7.4, Neut % (Auto) 66.7, Lymph % (Auto) 23.9, Fountain % (Auto) 6.1, Eos % (Auto) 2.9, Baso % (Auto) 0.4, Neut # (Auto) 6.2, Lymph # (Auto) 2.2, Fountain # (Auto) 0.6, Eos # (Auto) 0.3, Baso # (Auto) 0.0 11/28/18 13:12: Sodium 140, Potassium 4.5, Chloride 102, Carbon Dioxide 33 H, Anion Gap 9.5, BUN 28 H, Creatinine 3.77 H, Estimated Creat Clear 31, Estimated GFR 16 L*, Est GFR ( Amer) 19 L*, Glucose 124 H D, Calcium 8.4 L I & O for Last 24 hours: Intake & Output 11/26/18 11/27/18 11/28/18 11/29/18 11:59 11:59 11:59 11:59 Intake Total 1017 / 1017 1999 / 1999 Output Total 1400 / 1400 1550 / 1550 Balance -383 / -383 450 / 450 Weight 258 lb 2 oz 261 lb 3 oz - *Routine HEENT Exam Head: Present: normocephalic Eye: Present: EOMI, PERRL ENT: Present: mucous membranes moist - *Routine Respiratory Exam Present: decreased breath sounds, wheezes, diminished air movement. Absent: accessory muscle use, rales, rhonchi - *Routine Cardiovascular Exam Present: RRR. Absent: murmur, gallop, rubs - *Routine Extremities Exam Present: edema. Absent: calf tenderness - *Routine Neurological Exam Present: alert, oriented X3, moving all extremities Progress Note: A&P (1) CHF (congestive heart failure) Status: Acute Current Visit: Yes (2) Abdominal distention Status: Acute Current Visit: No (3) COPD (chronic obstructive pulmonary disease) Status: Acute Current Visit: No (4) Edema of both lower extremities Status: Acute Current Visit: No (5) Obesity (BMI 30-39.9) Status: Acute Current Visit: No (6) Diastolic dysfunction Status: Chronic Current Visit: No (7) Tobacco dependence syndrome Status: Chronic Current Visit: No (8) CKD (chronic kidney disease) Status: Chronic Current Visit: Yes Assessment and Plan for All Diagnoses:: 1. Still with significant edema, SOA and net positive I/O. Will stop maintenance IVF, increase IV lasix, monitor BUN/Cr. 2. Miralax and enema for BM.
[2018-11-29 08:33] LABS: Basophils % 0.2 % (0.1-2.0); Eosinophils # 0.2 K/mm3 (0.0-0.4); Eosinophils % 1.9 % (0.1-12.0); Hematocrit 35.8 % (42.0-52.0); Lymphocytes % 17.8 % (10-50); Mean Corpuscular HGB Conc 29.6 g/dL (31.8-35.4); Mean Corpuscular Volume 91.3 fl (80-94); Mean Platelet Volume 7.4 fl (7.4-10.4); Monocytes # 0.8 K/mm3 (0.1-1.0); Monocytes % 7.1 % (1.7-9.3); Neutrophils # 8.2 K/mm3 (1.8-7.8); Neutrophils % 72.9 % (37.0-80.0); Platelet Count 308 K/mm3 (142-424); Red Blood Count 3.92 M/mm3 (4.60-6.20); Red Cell Distribution Width 15.9 % (11.5-17.5); White Blood Count 11.2 K/mm3 (4.8-10.8)
[2018-11-29 08:37] LABS: Anion Gap 8.3 mEq/L (5-15)
[2018-11-29 08:42] LABS: Hemoglobin 10.7 g/dL (14.1-18.0)
--- NOTE | 2018-11-29 10:59 | Discharge Summary ---
General - General Admission date:: 11/27/18 Discharge date: 11/29/18 HPI HPI: Patient sitting up in bed this morning respirations are easy, even. He denies any chest pain. He is currently on 2 L of oxygen per nasal cannula. Patient is extremely hard of hearing. 68-year-old male patient sent from Dr. Weller's office during examination for shortness of breath, bilateral ankle, feet, and abdominal edema, generalized weakness, and fatigue. Patient stated he was getting worse over the last 3 days and denied any chest pain, cough, or fever. He also stated increasing weight, girth, bilateral leg edema, and currently taking Lasix [address] Weller requested admission for diuresis and to follow kidney function. Chest x-ray revealed congestive heart failure and suspicious 3 cm right upper lobe nodule. Abdominal CT was negative for ascites (both per Dr. Adam). Hospital Course Hospital Course: pt has not responded to iv diuretics and has inc wt and inc renal fuction and o2 requirement - pt has been seen by card -8-year-old white male was seen in the office yesterday and subsequently admitted through the ER for acute on chronic congestive heart failure. Patient did receive IV Lasix with less than a liter of output overnight. Breathing is minimally improved. Patient denies any recent increase in salt intake or missing medications. Recent echocardiogram last month shows: 2D 1. Left atrium is mildly enlarged, left ventricle is normal size, mild concentric left ventricular hypertrophy, visually estimated ejection fraction 55% with no regional wall motion abnormality. 2. The right atrium and right ventricle are mildly enlarged with normal contractility. 3. The aortic valve is minimally thickened and fibrosed. 4. The mitral and tricuspid valvular grossly normal. 5. The pulmonic valve is poorly visualized. 6. No significant pericardial effusion noted. DOPPLER INTERROGATION: Doppler interrogation of the aortic, mitral and tricuspid valvular presence of mild mitral and tricuspid regurgitation, tricuspid regurgitation jet velocity is inadequate for calculation of the right ventricular systolic pressure, grade 1 diastolic dysfunction seen without tissue Doppler evidence of raised left atrial pressure, inferior vena cava is not well visualized. CONCLUSION: 1. Biatrial enlargement, normal left ventricular size, mild concentric left ventricular hypertrophy, visually estimated ejection fraction 55% with no regional wall motion abnormality, grade 1 diastolic dysfunction seen without tissue Doppler evidence of raised left atrial pressure. 2. Mildly enlarged right ventricle with normal contractility. 3. Mild mitral and tricuspid regurgitation 4. No significant pericardial effusion noted. We will obtain a limited echo today to assess for etiology of his congestive heart failure, which is likely due to acute on chronic diastolic dysfunction related to hypertensive heart disease. 2. Continue Isosorbide and hydralazine along with IV Lasix. 3. Lung nodule noted on chest x-ray reportedly different than nodule seen on CXR and CT of chest last year, defer to Dr. Olvera for further evaluation. i ordered ct of chest but results pending - card saw pt today and recommended -dendum entered and electronically signed by KASH Avalos 11/29/18 09:51: Will use IV lasix gtt in place of torsemide. Addendum entered and electronically signed by KASH Avalos 11/29/18 09:44: BMP just reviewed with elevated Creatinine and potassium noted. Will stop lasix and switch to torsemide. Stop irbesartan Recommend transfer for consideration of dialysis in setting of CHF with diffuse edema. 68 yo WM sitting up at bedside eating breakfast in NAD. Still with complaint of SOA. Mainly concerned about no BM in 3 days. Limited echo yesterday shows no change compared to echo 09/2018 with normal LVEF and no pericardial effusion. [facility] and [facility] Objective Vital signs: Temp Pulse Resp BP Pulse Ox 98.1 F 66 19 115/55 L 88 L 11/29/18 08:00 11/29/18 10:09 11/29/18 08:00 11/29/18 08:00 11/29/18 08:45 no acute distress, obese, chronically ill appearing - *Routine HEENT Exam Head: Present: normocephalic Eye: Present: EOMI, PERRL ENT: Present: mucous membranes dry - *Routine Neck Exam Absent: JVD - *Routine Respiratory Exam Present: prolonged expiratory phase, rales, wheezes - *Routine Cardiovascular Exam Present: RRR, murmur, S3, S4 - *Routine Abdominal Exam Present: soft. Absent: tenderness - *Routine Extremities Exam Present: edema - *Routine Skin Exam Present: intact - *Routine Neurological Exam Present: alert, oriented X3, CN II-XII intact - Routine Psychiatric Exam Present: normal affect Results Labs on day of discharge: Labs from last 24 hours 11/29/18 11/29/18 11/28/18 08:20 08:20 13:12 WBC 11.2 H RBC 3.92 L Hgb 10.7 L D Hct 35.8 L MCV 91.3 MCH 27.0 MCHC 29.6 L RDW 15.9 Plt Count 308 MPV 7.4 Neut % (Auto) 72.9 Lymph % (Auto) 17.8 Mathews % (Auto) 7.1 Eos % (Auto) 1.9 Baso % (Auto) 0.2 Neut # (Auto) 8.2 H Lymph # (Auto) 2.0 Mathews # (Auto) 0.8 Eos # (Auto) 0.2 Baso # (Auto) 0.0 Sodium 138 140 Potassium 5.3 H 4.5 Chloride 101 102 Carbon Dioxide 34 H 33 H Anion Gap 8.3 9.5 BUN 36 H D 28 H Creatinine 4.35 H 3.77 H Estimated Creat Clear 28 31 Estimated GFR 14 L* 16 L* Est GFR ( Amer) 17 L* 19 L* Glucose 142 H 124 H D Calcium 8.0 L 8.4 L 11/28/18 13:12 WBC 9.3 RBC 4.38 L Hgb 12.0 L Hct 39.3 L MCV 89.7 MCH 27.4 MCHC 30.5 L RDW 15.9 Plt Count 292 MPV 7.4 Neut % (Auto) 66.7 Lymph % (Auto) 23.9 Mathews % (Auto) 6.1 Eos % (Auto) 2.9 Baso % (Auto) 0.4 Neut # (Auto) 6.2 Lymph # (Auto) 2.2 Mathews # (Auto) 0.6 Eos # (Auto) 0.3 Baso # (Auto) 0.0 Sodium Potassium Chloride Carbon Dioxide Anion Gap BUN Creatinine Estimated Creat Clear Estimated GFR Est GFR ( Amer) Glucose Calcium DS: Diagnosis - Discharge Diagnosis (1) CHF (congestive heart failure) Status: Acute (2) Abdominal distention Status: Acute (3) COPD (chronic obstructive pulmonary disease) Status: Acute (4) Edema of both lower extremities Status: Acute (5) Obesity (BMI 30-39.9) Status: Acute (6) Diastolic dysfunction Status: Chronic (7) Tobacco dependence syndrome Status: Chronic (8) CKD (chronic kidney disease) Status: Chronic (9) Hyperkalemia Status: Acute (10) Pulmonary nodule Status: Acute Discharge Plan - Patient Discharge Instructions ACTIVITY: Continue current activity DIET: continue same diet Patient Instructions: DI for Heart Failure, Chronic Renal Failure, Low-Sodium Diet - Follow up Plan Disposition: Xfer Short-Term Hosp Home Medications: Home Medications Medication Instructions Recorded Confirmed Type aspirin 81 mg tablet,delayed 81 mg PO DAILY 07/19/18 11/27/18 History release furosemide 40 mg tablet 40 mg PO BID tab 10/30/18 11/27/18 History Albuterol Sulfate [Albuterol HFA 2 puff INHALATION Q6H PRN 11/27/18 11/28/18 History Inhaler] Atorvastatin Calcium [Lipitor 20mg 20 mg PO DAILY 11/27/18 11/28/18 History Tablet] Fluticasone Propionate [Flovent 2 puffs INHALATION BID 11/27/18 11/28/18 History Diskus] Gabapentin 800 mg PO QID 11/27/18 11/27/18 History Hydralazine HCl [Hydralazine HCl 25 mg PO TID 11/27/18 11/27/18 History 25mg Tablet] Isosorbide Mononitrate [Imdur 30mg 30 mg PO DAILY 11/27/18 11/27/18 History ER tablet] Losartan Potassium 100 mg PO DAILY 11/27/18 11/27/18 History Prasugrel HCl [Prasugrel 10mg 10 mg PO DAILY 11/27/18 11/28/18 History Tab] Umeclidinium Brm/Vilanterol Tr 1 puff INHALATION Q24H 11/27/18 11/28/18 History [Anoro Ellipta] carvedilol 12.5 mg tablet 12.5 mg PO BID tab 11/27/18 11/28/18 History Prescriptions/Medication Reconciliation: Continued aspirin 81 mg tablet,delayed release 81 mg PO DAILY carvedilol 12.5 mg tablet 12.5 mg PO BID tab Prasugrel HCl [Prasugrel 10mg Tab] 10 mg PO DAILY Isosorbide Mononitrate [Imdur 30mg ER tablet] 30 mg PO DAILY Hydralazine HCl [Hydralazine HCl 25mg Tablet] 25 mg PO TID Fluticasone Propionate [Flovent Diskus] 2 puffs INHALATION BID Atorvastatin Calcium [Lipitor 20mg Tablet] 20 mg PO DAILY Albuterol Sulfate [Albuterol HFA Inhaler] 2 puff INHALATION Q6H PRN PRN Reason: Shortness Of Breath Umeclidinium Brm/Vilanterol Tr [Anoro Ellipta] 1 puff INHALATION Q24H Discontinued furosemide 40 mg tablet 40 mg PO BID tab Gabapentin 800 mg PO QID Losartan Potassium 100 mg PO DAILY - Problem Reconciliation Problems Reviewed?: Yes
[2018-11-29 12:31] LABS: Anion Gap 9.6 mEq/L (5-15); Calcium 8.1 mg/dL (8.5-10.1)
--- NOTE | 2018-11-29 14:01 | Cardiology Report ---
PROCEDURE: 2-D M-mode and color Doppler study INDICATIONS FOR THE TEST: Chest pain COPD+ Heart Murmur Tobacco Smoking+ Palpitations Fatigue Syncope Edema Hypertension+Diabetes Mellitus Rheumatic Fever SOB+PIERCE Obesity+Hyperlipidemia+ Family History HD Additional History CHF LIMITED ECHO-PT SITTING UPRIGHT IN BED WHEEZING PATIENT INFORMATION HEIGHT: 69 WEIGHT:258 GENDER: Male B/P:152/76 2-D/M-MODE INTERPRETATION: 2-D MEASUREMENTS OBSERVED VALUES IN CMS Right Ventricular Dimension (RVDd) 2.9 Interventricular Septum (Thickness)(IVsd) 1.1 Left Ventricular Internal Dimensions(LVIDd) 4.2 Left Ventricular Posterior Wall (Thickness)(LVPWd) 1.3 Aortic Root 3.3 Aortic Cusp Separation 2.1 Left Atrial Dimensions (LAD) 4.4 2D 1. Left atrium is mildly enlarged, left ventricle is normal size, mild concentric left ventricular hypertrophy, visually estimated ejection fraction of 55% with no regional wall motion abnormality. 2. The right atrium and right ventricle are mildly enlarged with normal contractility. 3. The aortic valve is minimally thickened and fibrosed. 4. The mitral and tricuspid valvular grossly normal. 5. The pulmonic valve is poorly visualized. 6. No significant pericardial effusion noted. DOPPLER INTERROGATION: Doppler interrogation of the aortic, mitral and tricuspid valvular presence of mild mitral and tricuspid regurgitation, tricuspid regurgitation jet velocity is inadequate for calculation of the right ventricular systolic pressure, diastolic parameters are inconclusive. CONCLUSION: 1. Mildly enlarged left atrium, normal left ventricular size, mild concentric left ventricular hypertrophy, visually estimated ejection fraction 55% with no regional wall motion abnormality, diastolic parameters are inconclusive. 2. Mildly enlarged left ventricle with normal contractility. 3. Mild mitral and tricuspid regurgitation 4. No significant pericardial effusion noted.
== END 2018-11-29 16:26 | disposition short-term general hospital (02) | DRG 292 ==
LOC: 2ND 14:50 → ER 14:50 → OBSVTOIN 18:20 → 2ND 18:21
PROVIDERS: ADMIT Emergency Medicine; ATTEND Emergency Medicine

== ENCOUNTER → 2019-01-20 13:45 | Outpatient (CLI) | payer MEDICARE, SELFPAY ==
--- NOTE | 2019-01-20 13:49 | US_ITS ---
APPROVED REPORT Exam Type: Lower Extremity Segmental Pressures Customer Service Associate: Yolanda Azevedo RDCS Indications Claudication: Rest Pain: Edema Risk Factors Obesity Pressures/Indices Right Indices Left Indices Brachial 151.00 mmHg Brachial 144.00 mmHg Low Thigh 149.00 mmHg 0.99 Low Thigh 129.00 mmHg 0.85 Calf 168.00 mmHg 1.11 Calf 137.00 mmHg 0.91 Ankle(PT) 169.00 mmHg 1.12 Ankle(PT) 167.00 mmHg 1.11 Ankle(DP) 151.00 mmHg 1.00 Ankle(DP) 147.00 mmHg 0.97 Digit 128.00 mmHg 0.85 Digit 134.00 mmHg 0.89 Findings R EMANUEL 1.1 L EMANUEL 1.1 R TBI .9 L TBI .9 NORMAL WAVEFORMS AND PULSES Conclusion No evidence significant arterial disease throughout the right and left lower extremities as evidenced by normal resting PVR waveforms and normal resting indices. Electronically signed by : Santosh Adam MD 01/27/2019 19:17:03
[2019-01-20 16:49] LABS: Albumin Level 2.4 gm/dL (3.4-5.0); Anion Gap 8.8 mEq/L (5-15); Blood Urea Nitrogen 15 mg/dL (7-18); Calcium 8.8 mg/dL (8.5-10.1); Carbon Dioxide 35 mmol/L (21.0-32.0); Chloride 102 mmol/L (98-107); Creatinine,Serum 2.82 mg/dL (0.70-1.30); Estimated Glomerular Filt Rate 23 ml/min (>60); GFR (African American) 27 ML/MIN (>60); Glucose 96 mg/dL (74-106); Phosphorous 2.4 mg/dL (2.4-4.9); Potassium 3.8 mmoL/L (3.5-5.1); Sodium 142 mmol/L (136-145)
[2019-01-20 17:26] LABS: Creatinine,Urine Random 91 mg/dL (20-320)
[2019-01-20 17:36] LABS: Total Protein,Urine Random 288.2 mg/dL (0.0-11.9)
== END ==
PROVIDERS: PCP Emergency Medicine; Visit Provider Internal Medicine Cardiovascular Disease
DX: I73.9 Peripheral vascular disease, unspecified (principal); M79.604 Pain in right leg
CPT/HCPCS: 36415; 80069; 82570; 84155; 93923

== ENCOUNTER → 2019-03-05 14:37 | Outpatient (CLI) | payer MEDICARE, SELFPAY ==
--- NOTE | 2019-03-05 14:46 | CA_ITS ---
APPROVED REPORT Bilateral Lower Extremity Venous Study for Product Consultant: CT Indications Right groin pain x 4 months. Risk Factors Obesity Vein Imaging CFV (R): compressive, spontaneous, phasic, augmentation FEM (R): compressive, spontaneous, phasic, augmentation POP (R): compressive, spontaneous, phasic, augmentation DFV (R): compressive, spontaneous, phasic, augmentation PTV (R): compressive, spontaneous, phasic, augmentation GSV (R): compressive, spontaneous, phasic, augmentation SSV (R): compressive, spontaneous, phasic, augmentation Peroneals (R):compressive, spontaneous, phasic, augmentation GAS (R): compressive, spontaneous, phasic, augmentation Findings RLE negative for DVT/SVT. Vessels compressible. Conclusion No evidence of DVT or superficial thrombophlebitis in the veins scanned of the right lower extremity. Electronically signed by : Santosh Adam MD 03/05/2019 17:27:13
== END ==
PROVIDERS: PCP Emergency Medicine; Visit Provider Internal Medicine
DX: I70.213 Atherosclerosis of native arteries of extremities with intermittent claudication, bilateral legs (principal); M79.661 Pain in right lower leg
CPT/HCPCS: 93971

== ENCOUNTER → 2019-03-10 13:54 | Outpatient (CLI) | payer MEDICARE, SELFPAY | PROVIDERS: Visit Provider Internal Medicine Cardiovascular Disease | DX: L03.313 Cellulitis of chest wall (principal); A49.02 Methicillin resistant Staphylococcus aureus infection, unspecified site | CPT/HCPCS: 87070; 87077; 87186; 87205 ==

== ENCOUNTER 2019-03-17 14:30 | Outpatient (RCR) | payer MEDICARE, SELFPAY ==
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
== END 2019-03-17 14:35 | disposition home or self-care (01) ==
LOC: PT 14:30
PROVIDERS: PCP Emergency Medicine; Visit Provider Urology
DX: L03.221 Cellulitis of neck (principal); L03.313 Cellulitis of chest wall
CPT/HCPCS: 97162

== ENCOUNTER → 2019-05-13 11:53 | Outpatient (CLI) | payer MEDICARE, SELFPAY ==
[2019-05-13 14:06] LABS: Anion Gap 10.6 mEq/L (5-15); Blood Urea Nitrogen 14 mg/dL (7-18); Calcium 8.7 mg/dL (8.5-10.1); Carbon Dioxide 34 mmol/L (21.0-32.0); Chloride 103 mmol/L (98-107); Creatinine,Serum 2.85 mg/dL (0.70-1.30); Estimated Glomerular Filt Rate 22 ml/min (>60); GFR (African American) 27 ML/MIN (>60); Glucose 90 mg/dL (74-106); Potassium 3.6 mmoL/L (3.5-5.1); Sodium 144 mmol/L (136-145)
== END ==
PROVIDERS: Physician Assistant; Visit Provider Nurse Practitioner Family
DX: I27.81 Cor pulmonale (chronic) (principal); I50.9 Heart failure, unspecified; N18.9 Chronic kidney disease, unspecified; R06.02 Shortness of breath; R60.9 Edema, unspecified; I21.4 Non-ST elevation (NSTEMI) myocardial infarction
CPT/HCPCS: 36415; 80048; 83880

== ENCOUNTER 2020-02-26 15:45 | Emergency (ER) | payer MEDICARE, SELFPAY ==
[2020-02-26 15:46] VITALS: BP 143/63; PULSE 72; RESP 22; TEMP 37.5; O2SAT 87; BMI 31.0
--- NOTE | 2020-02-26 15:58 | ECG_ITS ---
APPROVED REPORT Exam: Resting ECG HR:73 bpm ECG Measurements Heart Rate 73 AXES ME 162 P 30 QRSd 74 QRS 29 QT 382 T 75 QTc 420 Conclusion Normal sinus rhythm Normal ECG Electronically signed by : Trevon Iraheta, 02/29/2020 20:35:22
--- NOTE | 2020-02-26 16:09 | XR_ITS ---
PROCEDURE: XR CHEST PORTABLE CLINICAL HISTORY: SOB COMPARISON: CR Chest from 11/27/[address] chest wo con from 11/29/2018 CR XR CHEST PORTABLE from 01/08/2019 CR XR CHEST PORTABLE from 03/31/2019 FINDINGS: There is cardiomegaly without failure. There are small bilateral pleural effusions. Patchy density noted in the right lung base which could be due to an area of atelectasis or infiltrate No acute bony abnormalities. IMPRESSION: Small bilateral pleural effusions with possible infiltrate in the right lower lobe Dictated by: Santosh Adam MD 02/26/2020 17:15 Santosh Adam MD in [place] 02/26/2020 17:15
[2020-02-26 16:32] LABS: Basophils # 0.1 K/mm3 (0-0.2); Basophils % 0.6 % (0.1-2.0); Eosinophils # 0.2 K/mm3 (0.0-0.4); Eosinophils % 1.8 % (0.1-12.0); Hematocrit 35.6 % (42.0-52.0); Hemoglobin 11.1 g/dL (14.1-18.0); Lymphocytes # 2.6 K/mm3 (0.7-4.5); Lymphocytes % 23.5 % (10-50); Mean Corpuscular HGB Conc 31.2 g/dL (31.8-35.4); Mean Corpuscular Hemoglobin 29.7 pg (27.0-31.2); Monocytes # 0.8 K/mm3 (0.1-1.0); Monocytes % 7.6 % (1.7-9.3); Neutrophils # 7.3 K/mm3 (1.8-7.8); Neutrophils % 66.6 % (37.0-80.0); Platelet Count 196 K/mm3 (142-424); Red Blood Count 3.75 M/mm3 (4.60-6.20); Red Cell Distribution Width 16.9 % (11.5-17.5); White Blood Count 10.9 K/mm3 (4.8-10.8)
[2020-02-26 16:38] LABS: Chloride 93 mmol/L (98-107)
[2020-02-26 16:39] LABS: Potassium 4.3 mmoL/L (3.5-5.1); Sodium 136 mmol/L (136-145)
[2020-02-26 16:41] LABS: Alanine Aminotransferase 9 U/L (12-78); Aspartate Amino Transferase 26 U/L (17-59); Blood Urea Nitrogen 17 mg/dl (9-20); Creatinine Clearance Estimated 38 mL/min (50-200); Estimated Glomerular Filt Rate 26 ml/min (>60); GFR (African American) 31 ML/MIN (>60)
[2020-02-26 16:42] LABS: Albumin Level 4.1 g/dl (3.5-5.0); Albumin/Globulin Ratio 1.1 (1.1-1.8); Alkaline Phosphatase 121 U/L (38-126); Anion Gap 12.3 mEq/L (5-15); Bilirubin,Total 0.6 mg/dl (0.2-1.3); Calcium 8.9 mg/dl (8.4-10.2); Carbon Dioxide 35 mmol/L (22.0-30.0); Globulin 3.6 g/dL (1.3-3.2); Glucose 100 mg/dl (74-100); Total Protein,Serum 7.7 g/dl (6.3-8.2)
[2020-02-26 16:43] LABS: Lactic Acid 1.4 mmol/L (0.7-2.1)
[2020-02-26 16:54] LABS: Coronavirus 19 IgG Antibody Negative (Negative); Coronavirus 19 IgM Antibody Negative (Negative)
--- NOTE | 2020-02-26 16:54 | HMH.EDSOB ---
ED Disposition Clinical Impression: Nonadherence to medication Dyspnea Qualifiers: Dyspnea type: shortness of breath Qualified Code(s): R06.02 - Shortness of breath Disposition: Home, Self-Care Condition on Discharge: Good Referrals: Cash Olvera MD [Primary Care Provider] - 3 days - Critical Care Critical Care Time: No Attestation: On 02/26/20, the high probability of a clinically significant, sudden or life threatening deterioration of the following system(s) required my full and direct attention, intervention and personal management. The time I documented below is in addition to time spent performing reported procedures but includes the following listed in this critical care notation. Medical Decision Making - Medical Records Medical records reviewed: Yes: I reviewed the patient's medical records. - Hugo Inquiry Pt receiving controlled substance: No Vital Signs: 02/26/20 15:46 Temperature 99.5 F Temperature Source Oral Pulse Rate [Radial] 72 Respiratory Rate 22 Blood Pressure [Right Arm] 143/63 H Blood Pressure Mean [Right Arm] 89 Blood Pressure Position [Right Arm] Sitting 02 Sat by Pulse Oximetry 87 L Oxygen Delivery Method Nasal Cannula Oxygen Flow Rate (LPM) 2 - Lab Data Lab results reviewed: Yes: I reviewed the patient's lab results. Lab Results 02/26/20 16:20: WBC 10.9 H, RBC 3.75 L, Hgb 11.1 L, Hct 35.6 L, MCV 95.0 H, MCH 29.7, MCHC 31.2 L, RDW 16.9, Plt Count 196, MPV 8.0, Neut % (Auto) 66.6, Lymph % (Auto) 23.5, [place] % (Auto) 7.6, Eos % (Auto) 1.8, Baso % (Auto) 0.6, Neut # (Auto) 7.3, Lymph # (Auto) 2.6, [place] # (Auto) 0.8, Eos # (Auto) 0.2, Baso # (Auto) 0.1 02/26/20 16:20: Sodium 136, Potassium 4.3, Chloride 93 L, Carbon Dioxide 35 H, Anion Gap 12.3, BUN 17, Creatinine 2.50 H, Estimated Creat Clear 38, Estimated GFR 26 L, Est GFR ( Amer) 31 L, Glucose 100, Calcium 8.9, Total Bilirubin 0.6, AST 26, ALT 9 L, Alkaline Phosphatase 121, Troponin I < 0.01, Total Protein 7.7, Albumin 4.1, Globulin 3.6 H, Albumin/Globulin Ratio 1.1 02/26/20 16:20: Lactate 1.4 02/26/20 16:20: SARS-CoV-2 IgG Ab (Rapid) Negative, SARS-CoV-2 IgM Ab (Rapid) Negative Result diagrams: 02/26/20 16:20 02/26/20 16:20 Orders (Tests/Meds): ORDERS Category Date Time Status Chest XR -- portable [XR chest portable] Stat Exams 02/26/20 16:09 Taken Troponin I Q3H Lab 02/26/20 19:15 Ordered Troponin I Q3H Lab 02/26/20 22:15 Ordered Blood Culture Stat Micro 02/26/20 16:20 Received - Radiology Data #1 Image(s): Chest Image Reviewed: Yes I reviewed the patient's radiology image Preliminary Findings: Normal/NAD - ECG Data Tracing #1 EKG at 1558 shows normal sinus rhythm with a rate of 73. No acute ST segment elevation or depression. No hyperacute T waves. Normal intervals. EKG interpreted by me. Medical Decision Narrative: Patient does not describe any new cough or fever. His oxygen saturations are 98% on 2 L of hour while oxygen. I have advised that he wear his BiPAP at night as instructed. He has mild wheezes bilaterally, do not suspect clinically significant acute COPD exacerbation at this time. He was initially 87% on his home portable oxygen when he arrived, and I have advised his sister to help him evaluate the efficacy of his current set up with the oxygen supplier to make sure he is getting the appropriate flow. In addition, the 87% was after significant movement and exertion. Patient does not complain of any shortness of breath at this time and chest x-ray shows no signs of pneumonia. He is afebrile with no clinically significant leukocytosis. Covid test negative. Discharged home to follow-up with PCP in 2 to 3 days for reevaluation. Resp/SOB HPI - General Chief Complaint: Shortness of Breath/Dyspnea Stated Complaint: Possible pneumonia per home health nurse Time Seen by Provider: 02/26/20 16:54 Mode of Arrival: Wheelchair Limitations: No Limitations Descriptio
[2020-02-26 16:58] LABS: Troponin I < 0.01 ng/ml (0.00-0.034)
[2020-02-26 17:01] VITALS: BP 132/62; PULSE 72
[2020-02-26 17:14] VITALS: BP 132/62; PULSE 85; RESP 20; TEMP 36.8; O2SAT 94
== END 2020-02-26 17:33 | disposition home or self-care (01) ==
PROVIDERS: Emergency Provider Emergency Medicine; PCP Emergency Medicine
DX: R06.09 Other forms of dyspnea (principal); J44.9 Chronic obstructive pulmonary disease, unspecified; Z91.14 Patient's other noncompliance with medication regimen; Z01.84 Encounter for antibody response examination; I10 Essential (primary) hypertension; E78.5 Hyperlipidemia, unspecified; I25.10 Atherosclerotic heart disease of native coronary artery without angina pectoris; F17.210 Nicotine dependence, cigarettes, uncomplicated; I25.2 Old myocardial infarction; N18.6 End stage renal disease; Z99.2 Dependence on renal dialysis; Z88.8 Allergy status to other drugs, medicaments and biological substances
CPT/HCPCS: 71045; 80053; 83605; 84484; 85025; 86328; 87040; 93005; 99283

== ENCOUNTER → 2020-11-29 09:44 | Outpatient (CLI) | payer MEDICARE, MEDICAID, SELFPAY ==
[2020-11-29 10:20] VITALS: PULSE 71; PULSE 76
== END ==
PROVIDERS: PCP Nurse Practitioner Family; Visit Provider Internal Medicine Pulmonary Disease
DX: J44.9 Chronic obstructive pulmonary disease, unspecified (principal)
CPT/HCPCS: 94060; 94640

== ENCOUNTER → 2021-02-09 14:13 | Outpatient (CLI) | payer MEDICARE, MEDICAID, SELFPAY ==
--- NOTE | 2021-02-09 14:22 | CT_ITS ---
PROCEDURE: CT LUNG SCREENING CLINICAL INDICATION: LDCT COMPARISON: CT CHWO CT CHEST W/O CONTRAST from 07/17/[address] lung screening from 09/20/[address] CHEST WO CON from 11/29/2018 CR XR CHEST PORTABLE from 02/26/2020 TECHNIQUE: The exam was performed on a [employer] [address] scanner using 2.90 mGy CTDI. A low dose helical CT CHEST was performed on a multi-detector scanner. All CT scans at the facility use one or more dose reduction, viz: automated exposure control, ma/kV adjustment per patient size (including targeted exams where dose is matched to indication, i.e. head), or iterative reconstruction technique. The LDCT was performed in a facility that meets the criteria for the screening program. Data regarding this exam was submitted to ACR which is an approved registry. The order for this exam indicates that it came as a result of a lung cancer screening counseling shard decision-making visit that included all the elements required of such a visit including smoking cessation. The radiologist interpreting this exam meets the CMS criteria for the LDCT lung cancer screening program. The exam is reported using the Lung-RADS classification scale and reported to the ACR registry. NOTE: This study was performed for the specific purposes of lung cancer screening and is not an alternative to diagnostic chest CT. RADIATION DOSE: CTDI vol(CT dose Index-volume) = 2.90mG DLP (Dose Length Product) = 107.59 mGcm FINDINGS: COPD changes with paraseptal emphysematous and centrilobular emphysema. There is evidence of old granulomatous disease. There are medium-sized bilateral pleural effusions with bibasilar atelectatic change. A 5 mm noncalcified nodules present in the right upper lobe inferiorly . This is very slightly more prominent compared to 11/29/2018 possibly related to the radiographic technique. Continued follow-up suggested. There is consolidation in the right lower lobe posteriorly and to lesser degree in the left lower lobe posteriorly. This could be related to rounded atelectasis from the underlying effusion. This could obscure a pulmonary mass. Follow-up exam with contrast suggested . A 2.6 x 1.2 cm opacity is present in the lingula laterally and could be related to an area of consolidation or scarring or even developing pulmonary nodule. OTHER FINDINGS: Coronary artery calcifications. Cardiomegaly. Mild prominence of the left hepatic lobe. Gynecomastia IMPRESSION: Lung-RADS Category 4A Suspicious Follow-up: Suggest chest CT with contrast for further evaluation. This is an abnormal screening chest CT with interval development of medium-sized bilateral pleural effusions with consolidation in the lower lobes posteriorly which has a somewhat rounded configuration and could be due to rounded atelectasis or pneumonia. Underlying pulmonary nodules could be obscured. Follow-up chest CT suggested with contrast. A nodular opacities also present in the lingula laterally which could be due to scarring or developing nodule. Cardiomegaly with coronary artery disease Dictated by: Santosh Adam MD 02/11/2021 08:46 Santosh Adam MD in [facility] 02/11/2021 08:46
== END ==
PROVIDERS: PCP Nurse Practitioner Family; Visit Provider Internal Medicine Pulmonary Disease
DX: Z87.891 Personal history of nicotine dependence (principal); Z12.2 Encounter for screening for malignant neoplasm of respiratory organs
CPT/HCPCS: 71271

== ENCOUNTER → 2021-03-22 12:25 | Outpatient (CLI) | payer MEDICARE, MEDICAID, SELFPAY ==
--- NOTE | 2021-03-22 12:26 | CA_ITS ---
APPROVED REPORT EXAM: Comprehensive 2D, Doppler, and color-flow Echocardiogram Pharmacy Picking Tech: Madeleine Barker CRT Ht: 5 ft 9 in Wt: 202lbs BSA: 2.07 BP: 148/68 mmHg Indications: COPD, Shortness of Breath, Hyperlipidemia, Hypertension/HDD, smoker, home 02, stents, old NH 2D Dimensions LVOT 2.04 cm (M/F) 1.5-2.5 LA Volume 53.20 mL LA Volume Index 25.70 mL/m2 (M/F) 16-34 M-Mode Dimensions RVDd 3.61 cm (0.9-2.6) LA Diam 4.48 cm (1.9-4.0) LVDd 5.32 cm (3.5-5.7) Ao Diam 3.87 cm (2.0-3.7) LVDs 3.57 cm (3.5-5.7) IVSd 1.43 cm (0.6-1.1) PWd 1.08 cm (0.6-1.1) EF (Teich) 61.00% FS 32.90% EDV (Teich) 136.50 mL TAPSE 1.97 (<1.7) ESV (Teich) 53.30 mL LV Diastology E Decel Time 293.00 (160-240 msec) E/A Ratio 1.03 MED E' 5.30 (< 7 cm/sec) MED A' 12.40 cm/s E'/MED E' Ratio 21.58 (>14) LAT E' 13.40 (<10 cm/sec) LAT A' 14.80 cm/s E/LAT E' Ratio 8.54 (>14) Aortic Valve AO Peak GR. 7.70 mmHg Mitral Valve MV A Velocity 112.00 (40-130 cm/s) E/A Ratio 1.03 MV Decel. Time 293.00 (160-240 ms) Pulmonary Valve PV Peak Velocity 121.00 (50-150 cm/s) Tricuspid Valve TR P. Velocity 171.00 cm/s RAP Estimate 10.00 mmHg RVSP 21.70 mmHg Left Ventricle Left atrium is mildly enlarged, left ventricle is normal size, mild concentric left ventricular hypertrophy, visually estimated ejection fraction 50% with no obvious regional wall motion abnormality, grade 1 diastolic dysfunction seen without tissue Doppler evidence of raise left atrial pressure. Right Ventricle Right atrium and right ventricle are mildly enlarged with normal contractility. Aortic Valve Aortic valve is minimally thickened and fibrosed, there is no aortic stenosis or aortic insufficiency. Mitral Valve Mitral valve is grossly normal, there is trace mitral regurgitation. Tricuspid Valve Tricuspid valve grossly normal, there is trace tricuspid regurgitation, tricuspid regurgitation jet velocity is inadequate for calculation of the right ventricular systolic pressure. Pulmonic Valve Pulmonic valve is poorly visualized. Great Vessels Aortic root is normal size. Inferior vena cava is poorly visualized. Pericardium No significant pericardial effusion noted. Conclusion 1. Mild biatrial normal, normal left ventricular size, mild concentric left ventricular hypertrophy, visually estimated ejection fraction 50% with no regional wall motion abnormality, grade 1 diastolic dysfunction seen without tissue Doppler evidence of raise left atrial pressure. 2. Mildly enlarged right ventricle with normal contractility. 3. Trace mitral and tricuspid regurgitation. 4. No significant pericardial effusion noted. Electronically signed by : Donald Acuña MD 03/22/2021 20:36:44
== END ==
PROVIDERS: PCP Nurse Practitioner Family; Visit Provider Urology
DX: E78.2 Mixed hyperlipidemia (principal); F17.200 Nicotine dependence, unspecified, uncomplicated; G62.9 Polyneuropathy, unspecified; I10 Essential (primary) hypertension; I25.10 Atherosclerotic heart disease of native coronary artery without angina pectoris; I42.9 Cardiomyopathy, unspecified; I51.89 Other ill-defined heart diseases; J45.909 Unspecified asthma, uncomplicated; N18.9 Chronic kidney disease, unspecified
CPT/HCPCS: 93306

== ENCOUNTER → 2021-04-13 09:20 | Outpatient (CLI) | payer MEDICARE, MEDICAID, SELFPAY ==
--- NOTE | 2021-04-13 09:25 | XR_ITS ---
PROCEDURE INFORMATION: Exam: XR Chest Exam date and time: 04/13/2021 9:25 AM Age: 71 years old Clinical indication: Pain; Right-sided; Additional info: R lat rib pain TECHNIQUE: Imaging protocol: XR of the chest. Views: 2 views. COMPARISON: CR XR CHEST PORTABLE 02/26/2020 4:12 PM FINDINGS: Lungs: Airspace consolidation at both lung bases. The mid and upper lungs are clear. Pulmonary hyperexpansion. Pleural spaces: Small right pleural effusion, again noted. It is probably somewhat larger compared to previously. Heart/Mediastinum: Unremarkable. No cardiomegaly. Bones/joints: Fracture of the right 7th rib, probably acute. IMPRESSION: 1. Airspace consolidation at both lung bases is probably pneumonia. Small right pleural effusion is most likely a parapneumonic effusion. 2. Chronic obstructive pulmonary disease. 3. Right rib fracture.
== END ==
PROVIDERS: PCP Nurse Practitioner Family; Visit Provider Nurse Practitioner Family
DX: R07.81 Pleurodynia (principal)
CPT/HCPCS: 71046

== ENCOUNTER → 2021-08-10 14:56 | Outpatient (CLI) | payer MEDICARE, MEDICAID, SELFPAY ==
--- NOTE | 2021-08-10 14:56 | CT_ITS ---
FINAL REPORT TECHNIQUE: Axial images were obtained from the lung apex to the mid abdomen by computed tomography. Coronal reformatted images were obtained. This study was performed with techniques to keep radiation doses as low as reasonably achievable, (ALARA). Individualized dose reduction techniques using automated exposure control or adjustment of mA and/or kV according to the patient''s size were employed. CLINICAL HISTORY: 6 mth f/u COMPARISON: February 09, 2021 FINDINGS: There is no axillary adenopathy. There is an enlarged right periesophageal lymph node measuring 19 mm which is stable. There is no hilar or mediastinal adenopathy. Heart size is normal. There are moderate to severe coronary artery calcifications. Limited images of the upper abdomen are unremarkable. On the lung window images there is mild emphysema. There is mild pulmonary scarring. There has been interval improvement in bilateral pleural effusions. There is a right upper lobe nodule measuring 5 mm which is stable and seen on image 44. There is a 2.7 cm area of focal pleural or pleural based soft tissue with some calcification in the posterior right upper thorax. This was likely obscured by pleural fluid on the prior exam. There is worsening bilateral posterior lower lobe pleural based soft tissue favoring bilateral rounded atelectasis. There is a 19 mm pleural based soft tissue in the inferior lingula which is stable. There is mild bilateral pleural thickening. IMPRESSION: Stable right upper lobe nodule. Multiple other areas of pleural and pleural based soft tissue favoring post inflammatory but recommend follow-up chest CT in 3 months or PET-CT. Partially improved pleural effusions. Mild diffuse pleural thickening Reviewed, Interpreted and Dictated by Gildardo Jamil III, MD Transcribed by Thais Calles Authenticated by Gildardo Jamil III, MD on 08/11/2021 08:56:[address] [facility]
== END ==
PROVIDERS: PCP Nurse Practitioner Family; Visit Provider Internal Medicine Pulmonary Disease
DX: R91.8 Other nonspecific abnormal finding of lung field (principal)
CPT/HCPCS: 71250

== ENCOUNTER → 2022-02-10 09:29 | Outpatient (CLI) | payer MEDICARE, MEDICAID, SELFPAY ==
--- NOTE | 2022-02-10 09:30 | CT_ITS ---
FINAL REPORT TECHNIQUE: Axial imaging of the chest was obtained without contrast. Reformatted images were also obtained and reviewed.This study was performed with techniques to keep radiation doses as low as reasonably achievable, (ALARA). Individualized dose reduction technique using automated exposure control or adjustment of mA and/or kV according to the patient's size were employed. CLINICAL HISTORY: 6 month follow-up, pulmonary opacities COMPARISON: Is 08/10/2021, 02/09/2021 FINDINGS: There are severe left coronary artery calcifications. There is no axillary adenopathy. There is no hilar or mediastinal mass or adenopathy. Heart size is normal. Limited images of the upper abdomen are unremarkable. There is moderate emphysema and moderate pleural scarring. There is a stable area of pleural thickening and pleural calcification In the right posterior thorax measuring 30 mm. The again seen are small pleural effusions or pleural thickening. There are stable, bilateral, posterior lower lobe areas of atelectasis or scarring. There is also a stable opacity in the inferior lingula peak measuring 19 mm. No new pulmonary mass or nodule is seen. There are chronic right posterior rib fractures. IMPRESSION: Stable area of pleural thickening and pleural calcification in the right posterior thorax measuring 30 mm. Stable, 19 mm inferior lingular opacity. No new mass or nodule. Reviewed, Interpreted and Dictated by Gildardo Jamil III, MD Transcribed by Cindi Cleary Authenticated and [facility]
== END ==
PROVIDERS: PCP Nurse Practitioner Family; Visit Provider Internal Medicine Pulmonary Disease
DX: R91.8 Other nonspecific abnormal finding of lung field (principal)
CPT/HCPCS: 71250

== ENCOUNTER → 2022-04-19 10:44 | Outpatient (CLI) | payer MEDICARE, MEDICAID, SELFPAY ==
--- NOTE | 2022-04-19 10:45 | US_ITS ---
FINAL REPORT CLINICAL HISTORY: CLAUDICATION,DIFF. WALKING,CAD,SMOKER,HTN FINDINGS: ANKLE-BRACHIAL PRESSURE INDICES Pressure indices are as follows: RIGHT LOWER EXTREMITY: Ankle-brachial pressure index: 1.1 Comments: Normal LEFT LOWER EXTREMITY: Ankle-brachial pressure index: 1.1 Comments: Normal CONCLUSION: No evidence of significant obstructive peripheral vascular disease of the lower extremities Reviewed, Interpreted and Dictated by Gildardo Jamil III, MD Transcribed by Thais Calles Authenticated and [facility]
== END ==
PROVIDERS: PCP Nurse Practitioner Family; Visit Provider Internal Medicine Cardiovascular Disease
DX: I70.213 Atherosclerosis of native arteries of extremities with intermittent claudication, bilateral legs
CPT/HCPCS: 93923

== ENCOUNTER → 2022-11-08 13:11 | Outpatient (CLI) | payer MEDICARE, MEDICAID, SELFPAY | PROVIDERS: PCP Emergency Medicine; Visit Provider Nurse Practitioner | DX: I25.10 Atherosclerotic heart disease of native coronary artery without angina pectoris (principal); I42.9 Cardiomyopathy, unspecified; I50.9 Heart failure, unspecified; R60.9 Edema, unspecified | CPT/HCPCS: 93306 ==

== ENCOUNTER → 2022-11-22 15:34 | Outpatient (CLI) | payer MEDICARE, MEDICAID, SELFPAY ==
[2022-11-22 16:51] LABS: Alanine Aminotransferase 12 U/L (12-78); Albumin Level 2.8 g/dl (3.5-5.0); Alkaline Phosphatase 196 U/L (38-126); Anion Gap 9.8 mEq/L (5-15); Aspartate Amino Transferase 19 U/L (17-59); Bilirubin,Indirect 0.3 mg/dL (0.0-0.9); Bilirubin,Total 0.3 mg/dl (0.2-1.3); Bilirubin,Unconjugated 0.3 mg/dL (0.0-1.1); Blood Urea Nitrogen 15 mg/dl (9-20); Calcium 7.4 mg/dl (8.4-10.2); Carbon Dioxide 32 mmol/L (22.0-30.0); Chloride 97 mmol/L (98-107); Chol/HDL Ratio 2.4 (1-3.5); Cholesterol 119 mg/dl (140-200); Estimated Glomerular Filt Rate 14 ml/min (>60); GFR (African American) 17 ML/MIN (>60); Glucose 94 mg/dl (74-100); HDL Cholesterol 50 mg/dl (40-60); Magnesium 1.3 mg/dl (1.6-2.3); Potassium 3.8 mmoL/L (3.5-5.1); Sodium 135 mmol/L (136-145); Total Protein,Serum 5.6 g/dl (6.3-8.2); Triglycerides 69 mg/dl (30-150); VLDL Cholesterol 14 mg/dL (0-40)
[2022-11-22 17:02] LABS: Direct LDL Cholesterol 50.05 mg/dL (100-129)
[2022-11-22 17:05] LABS: Free T4 (Free Thyroxine) 1.25 ng/dl (0.78-2.19)
[2022-11-22 17:20] LABS: Thyroid Stimulating Hormone 0.61 uIU/mL (0.465-4.68)
== END ==
PROVIDERS: PCP Emergency Medicine; Visit Provider Nurse Practitioner
DX: I48.91 Unspecified atrial fibrillation (principal); I10 Essential (primary) hypertension
CPT/HCPCS: 36415; 80048; 80061; 80076; 83735; 84439; 84443; 93270

== ENCOUNTER 2023-05-16 15:09 | Emergency (ER) | payer MEDICARE, MEDICAID, SELFPAY ==
[2023-05-16] VITALS (16 sets, daily range): BP systolic 111–140; BP diastolic 58–82; PULSE 105–134; RESP 16–45; TEMP 36.5; O2SAT 92–100; BMI 26.9
--- NOTE | 2023-05-16 15:06 | ECG_ITS ---
APPROVED REPORT Exam: Resting ECG HR:120 bpm ECG Measurements Heart Rate 120 AXES QRSd 77 QRS 89 QT 285 T 256 QTc 356 Conclusion ATRIAL FIBRILLATION WITH RAPID VENTRICULAR RESPONSE WITH ABERRANT CONDUCTION OR VENTRICULAR PREMATURE COMPLEXES ST DEVIATION AND MODERATE T-WAVE ABNORMALITY, CONSIDER LATERAL ISCHEMIA [-0.1+ mV T-WAVE IN I/aVL/V5/V6] ABNORMAL ECG UNCONFIRMED REPORT Electronically signed by : Trevon Iraheta MD 05/18/2023 14:40:37
--- NOTE | 2023-05-16 15:41 | XR_ITS ---
PROCEDURE INFORMATION: Exam: XR Chest Exam date and time: 05/16/2023 4:30 PM Age: 73 years old Clinical indication: Shortness of breath; Additional info: SOB TECHNIQUE: Imaging protocol: Radiologic exam of the chest. Views: 1 view. COMPARISON: CT CHEST WO CON 02/10/2022 9:46 AM FINDINGS: Lungs: Lingular and left lower lobe parenchymal consolidation concerning for pneumonia. Mild pulmonary edema is noted. Pleural spaces: The right costophrenic angles excluded which somewhat limits the study. Heart/Mediastinum: Stable cardiac and mediastinal contours. Bones/joints: No evidence of acute osseous abnormalities within the visualized portions of the thoracic spine and ribs. Osseous structures appear appropriate for patient age. IMPRESSION: Lingular and left lower lobe parenchymal consolidation concerning for pneumonia.
--- NOTE | 2023-05-16 15:43 | ED_ITS ---
Discharge Plan Disposition Patient Disposition: Xfer Short-Term Hosp Chief Complaint: Arrhythmia/Palpitations Prescriptions Prescriptions: No Action gabapentin 400 mg capsule 400 mg PO TID Qty: 90 3RF Eliquis 2.5 mg tablet 2.5 mg PO BID Qty: 60 11RF albuterol sulfate 2.5 mg /3 mL (0.083 %) solution for nebulization See Rx Instructions .ROUTE .COMPLEX Qty: 180 1RF Dose Instruction: use 2.5 mg (3 mL) via nebulizer every 4-6 hours As Needed for shortness of breath or wheezing Rx Instructions: use 2.5 mg (3 mL) via nebulizer every 4-6 hours As Needed for shortness of breath or wheezing bumetanide 1 mg tablet 1 mg PO DAILY Qty: 90 0RF atorvastatin 20 mg tablet See Rx Instructions .ROUTE .COMPLEX Qty: 90 3RF Dose Instruction: TAKE 1 TABLET BY MOUTH AT BEDTIME for Cholesterol Rx Instructions: TAKE 1 TABLET BY MOUTH AT BEDTIME for Cholesterol Incruse Ellipta 62.5 mcg/actuation blister with device 1 inh inhalation DAILY Qty: 30 2RF albuterol sulfate 90 mcg/actuation HFA aerosol inhaler 2 puff INHALATION Q6H PRN (Reason: shortness of breath or wheezing) Qty: 6.7 5RF albuterol sulfate 0.63 mg/3 mL solution for nebulization 0.63 mg inhalation Q4H Qty: 90 2RF ketoconazole 2 % cream 1 applic TP BID Qty: 30 0RF polyethylene glycol 3350 17 gram/dose powder 17 g PO BID Qty: 510 1RF Spiriva Respimat 2.5 mcg/actuation mist 2 inh INHALATION DAILY Qty: 4 4RF metoprolol succinate 50 mg tablet extended release 24 hr See Rx Instructions .ROUTE .COMPLEX Qty: 30 5RF Dose Instruction: TAKE ONE TABLET BY MOUTH DAILY Rx Instructions: TAKE ONE TABLET BY MOUTH DAILY omeprazole 20 mg capsule,delayed release(DR/EC) See Rx Instructions .ROUTE .COMPLEX Qty: 90 0RF Dose Instruction: TAKE ONE CAPSULE BY MOUTH DAILY Rx Instructions: TAKE ONE CAPSULE BY MOUTH DAILY Referrals Follow up/Referrals: Donald Calvin, [Primary Care Provider] - See instructions Clinical Impressions Clinical Impression: Acute hypercapnic respiratory failure, Pneumonia, Dependence on renal dialysis Discharge ED Provider: Bundy,Sebastian G General Adult HPI General Chief complaint: Arrhythmia/Palpitations Stated complaint: arrhythmia Time Seen by Provider: 05/16/23 15:09 Mode of Arrival: EMS Source of Information: Patient Limitations: No Limitations Description of Symptoms (Recalled from ER Triage Doc. by RN): pt presents to ED with c/o sore on coccyx. pt was being seen at pcp office, staff stated that pts HR was 190 and O2 sats were 63%. upon arrival to office EMS states that pt HR was in the 100's and O2 sat was 91 on 2L. pt does wear 2L all the time. pt does have hx of afib and is on eliquis. History of Present Illness HPI narrative: Patient is a 73-year-old male with past medical history of COPD on 2 L nasal cannula at home, cardiomyopathy, deaf, chronic smoker, dialysis dependent state with left upper extremity fistula however still making some urine who presents emergency department for evaluation of shortness of breath. Patient was seen at PCP today where her heart rate was in the 190s reportedly and oxygen sat was 63 on his baseline oxygen requirement. Upon EMS arrival patient's heart rate was low 100s and oxygen sat was 91 on baseline requirement. He has known history of atrial fibrillation and is on Eliquis. Patient was admitted to outside hospital in March for 2 weeks for hypercarbic respiratory failure, was discharged with subacute rehabilitation for which she was recently discharged home. Due to persistent shortness of breath he presents here for continued evaluation. Bronson sotomayor is dialysis dependent Sunday. Related Data Previous Rx's Medication Instructions Recorded albuterol sulfate 2.5 mg/3 mL See Rx Instructions .Route 11/09/22 (0.083 %) solution for nebulization .COMPLEX #180 mL atorvastatin 20 mg tablet See Rx Instructions .Route 11/09/22 .COMPLEX #90 tabs bumetanide 1 mg tablet 1 mg PO DAILY #90 tabs 11/09/22 umeclidinium 62.5 mcg/actuation 1 inh inhalation DAILY #30 ea 11/10/22 blister powder for inhalation (Incruse Ellipta) albuterol sulfate 0.63 mg/3 mL 0.63 mg (3 mL) inhalation Q4H #90 11/20/22 solution for nebulization mL albuterol sulfate 90 mcg/actuation 2 puff inhalation Q6H PRN 11/20/22 aerosol inhaler shortness of breath or wheezing #6.7 grams ketoconazole 2 % topical cream 1 applic topical BID #30 grams 11/20/22 polyethylene glycol 3350 17 17 g PO BID #510 grams 11/20/22 gram/dose oral powder tiotropium bromide 2.5 2 inh inhalation DAILY #4 grams 11/20/22 mcg/actuation mist for inhalation (Spiriva Respimat) apixaban 2.5 mg tablet (Eliquis) 2.5 mg PO BID #60 tabs 12/20/22 gabapentin 400 mg capsule 400 mg PO TID #90 caps 01/17/23 metoprolol succinate 50 mg See Rx Instructions .Route 02/27/23 tablet,extended release 24 hr .COMPLEX #30 tabs omeprazole 20 mg capsule,delayed See Rx Instructions .Route 03/23/23 release .COMPLEX #90 caps Allergies Allergy/AdvReac Type Severity Reaction Status Date / Time lisinopril Allergy Severe Swelling Verified 01/17/23 14:39 of Lip/Tongue/Throat [facility] Disclaimer: The information contained in this section may have been updated after the patient was seen, as this information can be updated by other users. Medical History Cardiomyopathy Chronic hypoxemic respiratory failure (~11/22/22) Claudication COPD (chronic obstructive pulmonary disease) COPD mixed type Dyspnea on exertion Neuropathy Pleural effusion Pulmonary emphysema Pulmonary nodule Smoking greater than 30 pack years SOB (shortness of breath) Tobacco abuse counseling Tobacco abuse disorder Surgical History History of arthroscopy of shoulder History of cardiac cath History of colonoscopy History of coronary artery stent placement Hx of cholecystectomy Family History Other Coronary artery disease Heart attack Social History Smoking Status: Current every day smoker tobacco type: cigarettes packs per day: 1 second hand exposure: No alcohol intake: never substance use type: denies use current occupational status: other Travel in the last 8 weeks: None household members: other housing: other ROS Obtained: Yes Systems reviewed as appropriate & no additional complaints except as documented Physical Exam General General appearance: alert and in no apparent distress Head Head exam: atraumatic and normocephalic Eye Eye exam: Present PERRL and EOMI ENT ENT exam: Present mucous membranes moist Neck Neck exam: Present normal inspection Chest Chest inspection: Present normal inspection and symmetric chest wall rise Respiratory Respiratory exam: Present wheezes, accessory muscle use and other (Tachypnea); Absent respiratory distress Cardiovascular Cardiovascular exam: Present tachycardia, irregular rhythm and other (2+ pitting edema bilateral lower extremities) Abdominal Exam Abdominal exam: Present soft; Absent tenderness Extremities Exam Extremities exam: Present normal inspection and other (Left upper extremity fistula with palpable thrill) Neurological Exam Neurological exam: Present alert Psychiatric Psychiatric exam: Present normal affect Skin Skin exam: Present warm and dry Medical Decision Making Hugo Inquiry Pt receiving controlled substance: No Vital Signs: 05/16/23 15:10 05/16/23 16:01 05/16/23 16:20 Temperature 97.7 F Temperature Source Oral Pulse Rate 126 H 115 H Pulse Rate [Left Radial] 128 H Respiratory Rate 25 H 29 H 24 Blood Pressure 129/82 134/79 Blood Pressure [Right Arm] 125/74 Blood Pressure Mean [Right Arm] 91 02 Sat by Pulse Oximetry 92 L 100 96 Oxygen Delivery Method Nasal Cannula Nasal Cannula Nasal Cannula Oxygen Flow Rate (LPM) 2 05/16/23 16:44 05/16/23 16:30 05/16/23 17:00 Temperature Temperature Source Pulse Rate 129 H 120 H 128 H Pulse Rate [Left Radial] Respiratory Rate 26 H 32 H Blood Pressure 111/63 122/58 L Blood Pressure [Right Arm] Blood Pressure Mean [Right Arm] 02 Sat by Pulse Oximetry 95 98 Oxygen Delivery Method Room Air Room Air Oxygen Flow Rate (LPM) 05/16/23 17:52 Temperature Temperature Source Pulse Rate 129 H Pulse Rate [Left Radial] Respiratory Rate Blood Pressure Blood Pressure [Right Arm] Blood Pressure Mean [Right Arm] 02 Sat by Pulse Oximetry Oxygen Delivery Method Oxygen Flow Rate (LPM) Lab Data Lab Results 05/16/23 15:17: WBC 15.2 H, RBC 4.25 L, Hgb 11.9 L, Hct 40.1 L, MCV 94.4 H, MCH 28.1, MCHC 29.8 L, RDW 18.1 H, Plt Count 263, MPV 9.4, Neut % (Auto) 85.3 H, Lymph % (Auto) 8.8 L, [place] % (Auto) 5.5, Eos % (Auto) 0.1, Baso % (Auto) 0.4, Neut # (Auto) 13.0 H, Lymph # (Auto) 1.3, [place] # (Auto) 0.8, Eos # (Auto) 0.0, Baso # (Auto) 0.1, Total Counted 100, Neutrophils % (Manual) 81 H, Lymphocytes % (Manual) 12, Monocytes % (Manual) 7, Platelet Estimate Normal, Hypochromasia 2+, Anisocytosis 2+, Microcytosis 2+, Sodium 140, Potassium 4.3, Chloride 99, Carbon Dioxide 35 H, Anion Gap 10.3, BUN 29 H, Creatinine 3.60 H, Estimated Creat Clear 22, Estimated GFR 17 L*, Est GFR ( Amer) 20 L, Glucose 94, Calcium 8.3 L, Magnesium 1.8, Total Bilirubin 1.0, AST 28, ALT 23, Alkaline Phosphatase 104, Troponin I 0.03, NT-Pro-B Natriuret Pep 570073 H, Total Protein 6.8, Albumin 3.5, Globulin 3.3 H, Albumin/Globulin Ratio 1.1 05/16/23 15:41: VBG pH 7.24 L, VBG pCO2 74.7 H, VBG pO2 34.4, VBG HCO3 31.2 H, VBG Total CO2 33.4 H, VBG O2 Saturation 61.1, VBG Base Excess 3.7 H 05/16/23 16:10: SARS-CoV-2 (PCR) Not detected, Influenza A Untype (PCR) Not detected, Influenza Type B (PCR) Not detected 05/16/23 17:45: Lactate 1.9 05/16/23 18:45: Troponin I 0.04 H 05/16/23 15:17 05/16/23 15:17 Orders (Tests/Meds): ED MEDICATIONS Generic Name Dose Route Start Last Admin Trade Name Freq PRN Reason Stop Dose Admin Diltiazem HCl 120 mg 05/16/23 20:56 Diltiazem Er 120mg Capsule PO 05/16/23 20:57 ONCE ONE Ceftriaxone Sodium 1 gm/ 50 mls @ 100 mls/hr 05/16/23 19:45 05/16/23 20:05 Sodium Chloride IV 05/26/23 19:44 100 mls/hr Q24H AC Administration Sodium Chloride 10 ml 05/16/23 19:59 Sodium Chloride 0.9% 10ml Vial IV 06/15/23 19:58 NEEDED PRN to Dilute Lorazepam inj Discontinued Medications Generic Name Dose Route Start Last Admin Trade Name Freq PRN Reason Stop Dose Admin Albuterol Sulfate 20 mg 05/16/23 16:29 05/16/23 16:44 Albuterol 0.083% 2.5 Mg/3 Ml [facility] 05/16/23 16:30 20 mg ONCE ONE Administration Albuterol/Ipratropium 9 ml 05/16/23 15:41 05/16/23 15:47 Ipratropium/Albuterol 3 Ml Neb 05/16/23 15:42 9 ml ONCE ONE Administration Azithromycin 500 mg/ Sodium 250 mls @ 250 mls/hr 05/16/23 16:30 05/16/23 17:07 Chloride IV 05/16/23 16:31 250 mls/hr ONCE ONE Administration Lorazepam 1 mg 05/16/23 19:59 05/16/23 20:07 Lorazepam 2mg/Ml Vial IV 05/16/23 20:00 1 mg ONCE ONE Administration Methylprednisolone Sodium Succinate 125 mg 05/16/23 15:41 05/16/23 15:49 Methylprednisolone Sod Succ 125mg Vial IV 05/16/23 15:42 125 mg ONCE ONE Administration ORDERS Category Date Time Status CXR --portable [XR chest portable] Stat Exams 05/16/23 15:41 Completed POCUS Point of Care (ER Only) Stat Exams 05/16/23 15:32 Taken BNP [Brain Natriuretic Peptide] Stat Lab 05/16/23 15:17 Completed CBC w/Auto Diff [Complete Blood Count Auto Diff] Stat Lab 05/16/23 15:17 Completed CMP [Comprehensive Metabolic Panel] Stat Lab 05/16/23 15:17 Completed Lactic Acid Stat Lab 05/16/23 17:45 Completed MG [Magnesium] Stat Lab 05/16/23 15:17 Completed Rapid PCR Covid and Flu A/B Stat Lab 05/16/23 16:10 Completed Trop I [Troponin I] Stat Lab 05/16/23 15:17 Completed Troponin I Q3H Lab 05/16/23 18:45 Completed Troponin I Q3H Lab 05/16/23 21:45 Ordered Blood Culture Stat Micro 05/16/23 17:45 Ordered VBG [Venous Blood Gas] Stat RT 05/16/23 15:41 Completed ECG initial [place] Routine Y 05/16/23 15:06 Completed ECG Data Tracing #1: Independently interpreted by me, rate is 120, rhythm is irregular, atrial fibrillation with rapid ventricular response with intermittent PVCs, no ST elevation in anatomical contiguous leads, QTc 356. Medical Decision Narrative: In summary patient is a 73-year-old male with past medical history described above who presents to the emergency department for evaluation of shortness of breath. Patient is hemodynamically stable nontoxic-appearing upon arrival, afebrile. Patient is in A-fib with RVR. He has diffuse wheezing and severely decreased air movement in all lung aparicio. I suspect patient is having a COPD exacerbation and tachycardia is a compensatory response. He is volume overloaded chronically at baseline. Differential includes pneumonia, viral COPD exacerbation, among others. Patient has a known history of atrial fibrillation is on Eliquis so doubt pulmonary embolism. Workup will be conducted with hematologic labs, chest x-ray, EKG, troponins. Initial inventions include DuoNeb's x 3, methylprednisolone. Aggressive volume resuscitation will be deferred given that patient is chronically volume overloaded. Initial workup reviewed by me, patient has leukocytosis of 15, hypercarbic acidosis, extremely elevated BNP in the setting of chronic CKD. COVID-negative. No critical electrolyte abnormalities. Patient will be placed on BiPAP for hypercarbic acidosis, chest x-ray informally interpreted by me, left lower lobe pneumonia. Patient be broadened with ceftriaxone. The case was discussed with Nikhil Booker who graciously excepted patient for transfer for continued evaluation at this time. Critical Care Critical Care Time Critical Care Time: Yes Attestation: On 05/16/23, the high probability of a clinically significant, sudden or life threatening deterioration of the following system(s) required my full and direct attention, intervention and personal management. The time I documented below is in addition to time spent performing reported procedures but includes the following listed in this critical care notation. Total Time Total Critical Care Time: 45
[2023-05-16] MEDS: IPRATROPIUM/ALBUTEROL 3 ML NEB 9 ML IH (15:47)
[2023-05-16] MEDS: METHYLPREDNISOLONE SOD SUCC 125MG VIAL 125 MG IV (15:49)
[2023-05-16 15:53] LABS: Chloride 99 mmol/L (98-107); Sodium 140 mmol/L (136-145)
[2023-05-16 15:54] LABS: Potassium 4.3 mmoL/L (3.5-5.1)
[2023-05-16 15:56] LABS: Alanine Aminotransferase 23 U/L (12-78); Aspartate Amino Transferase 28 U/L (17-59); Blood Urea Nitrogen 29 mg/dl (9-20); Creatinine Clearance Estimated 22 mL/min (50-200); Estimated Glomerular Filt Rate 17 ml/min (>60); GFR (African American) 20 ML/MIN (>60)
[2023-05-16 15:57] LABS: Albumin Level 3.5 g/dl (3.5-5.0); Albumin/Globulin Ratio 1.1 (1.1-1.8); Alkaline Phosphatase 104 U/L (38-126); Anion Gap 10.3 mEq/L (5-15); Calcium 8.3 mg/dl (8.4-10.2); Carbon Dioxide 35 mmol/L (22.0-30.0); Globulin 3.3 g/dL (1.3-3.2); Glucose 94 mg/dl (74-100); Magnesium 1.8 mg/dl (1.6-2.3); Total Protein,Serum 6.8 g/dl (6.3-8.2)
[2023-05-16 16:03] LABS: Basophils # 0.1 K/mm3 (0-0.2); Basophils % 0.4 % (0.1-2.0); Eosinophils % 0.1 % (0.1-12.0); Hematocrit 40.1 % (42.0-52.0); Hemoglobin 11.9 g/dL (14.1-18.0); Lymphocytes # 1.3 K/mm3 (0.7-4.5); Lymphocytes % 8.8 % (10-50); Mean Corpuscular HGB Conc 29.8 g/dL (31.8-35.4); Mean Corpuscular Hemoglobin 28.1 pg (27.0-31.2); Mean Corpuscular Volume 94.4 fl (80-94); Mean Platelet Volume 9.4 fl (7.4-10.4); Monocytes # 0.8 K/mm3 (0.1-1.0); Monocytes % 5.5 % (1.7-9.3); Neutrophils % 85.3 % (37.0-80.0); Platelet Count 263 K/mm3 (142-424); Red Blood Count 4.25 M/mm3 (4.60-6.20); Red Cell Distribution Width 18.1 % (11.5-17.5); White Blood Count 15.2 K/mm3 (4.8-10.8)
[2023-05-16 16:08] LABS: Troponin I 0.03 ng/ml (0.00-0.034)
[2023-05-16 16:15] LABS: Coronavirus 19, PCR Not Detected (NotDetected); Influenza A, PCR Not Detected (NotDetected); Influenza B, PCR Not Detected (NotDetected)
[2023-05-16 16:17] LABS: MANUAL DIFFERENTIAL MANUAL DIFFERENTIAL (MANUAL DIFF)
--- NOTE | 2023-05-16 16:23 | PC.NURSE ---
called resp to let them know about vbg order and jacob asher was at lab
[2023-05-16 16:28] LABS: VBG Base Excess 3.7 mmol/L (-2.4-2.3); VBG HCO3 31.2 mmol/L (23-30); VBG Oxygen Saturation 61.1 % (50-70); VBG PCO2 74.7 mmol/L (35-51); VBG PH 7.24 mmol/L (7.31-7.41); VBG PO2 34.4 mmol/L (28-40); VBG Total CO2 33.4 mmol/L (23-27)
[2023-05-16] MEDS: ALBUTEROL 0.083% 2.5 MG/3 ML NEB 20 MG IH (16:44)
[2023-05-16 16:55] LABS: Lymphocytes % 12 % (10-50); Monocytes % 7 % (2-9); Neutrophils % 81 % (42-76); Total Cells Counted 100
[2023-05-16 16:56] LABS: Anisocytosis 2+; Hypochromasia 2+; Microcytosis 2+; Platelet Estimate Normal
[2023-05-16] MEDS: AZITHROMYCIN 500 MG in 0.9 % SODIUM CHLORIDE 250 ML 250 MG IV (17:07)
[2023-05-16 17:34] LABS: NT Pro Brain Natriuretic Pep. 295000 pg/mL (0-125)
[2023-05-16 18:15] LABS: Lactic Acid 1.9 mmol/L (0.7-2.1)
--- NOTE | 2023-05-16 19:31 | PC.NURSE ---
in room talking with patient at this time.
--- NOTE | 2023-05-16 19:41 | PC.NURSE ---
contacting [facility] for transfer
--- NOTE | 2023-05-16 19:46 | PC.NURSE ---
Calling [facility] about transfer at this time.
--- NOTE | 2023-05-16 19:51 | PC.NURSE ---
contacting [facility] for transfer
[2023-05-16] MEDS: CEFTRIAXONE 1 GM 1 GM in 0.9 % SODIUM CHLORIDE 50 ML IV (20:05)
[2023-05-16] MEDS: LORazepam 2MG/ML VIAL 1 MG IV (20:07)
[2023-05-16 20:40] LABS: Troponin I 0.04 ng/ml (0.00-0.034)
--- NOTE | 2023-05-16 20:53 | PC.NURSE ---
o/p with Nikhil at this time.
--- NOTE | 2023-05-16 21:06 | PC.NURSE ---
[facility] called for bed assignment. Pt going to room 505 number for report [phone] accepting physician Danielle Booker need face sheet faxed to [phone]
[2023-05-16] MEDS: dilTIAZem ER 120MG CAPSULE 120 MG PO (21:52)
--- NOTE | 2023-05-16 22:35 | PC.NURSE ---
report called to yahaira Sarkar
[2023-05-16 23:26] LABS: Troponin I 0.03 ng/ml (0.00-0.034)
[2023-05-17] VITALS: BP 116/63; PULSE 110; RESP 16; O2SAT 99
[2023-05-17] MEDS: LORazepam 2MG/ML VIAL 1 MG IV (00:52)
[2023-05-17 00:54] VITALS: BP 131/67; PULSE 129; RESP 16; TEMP 36.5; O2SAT 97
== END 2023-05-17 00:56 | disposition short-term general hospital (02) ==
PROVIDERS: Emergency Provider Emergency Medicine; PCP Internal Medicine
DX: J96.02 Acute respiratory failure with hypercapnia (principal); J18.9 Pneumonia, unspecified organism; J44.9 Chronic obstructive pulmonary disease, unspecified; I42.9 Cardiomyopathy, unspecified; I48.91 Unspecified atrial fibrillation; I49.3 Ventricular premature depolarization; F17.210 Nicotine dependence, cigarettes, uncomplicated; Z79.01 Long term (current) use of anticoagulants
CPT/HCPCS: 71045; 80053; 82803; 83605; 83735; 83880; 84484; 85007; 85025; 87040; 87636; 93005; 96365; 96367; 96375; 96376; 99285; J0456; J0696